=== PATIENT | male | born 1970 | race Caucasian/White ===

== ENCOUNTER → 2017-07-26 06:13 | Outpatient (CLI) | payer BC, SELFPAY ==
[2017-07-26 08:44] LABS: ALB/GLOB Ratio 1.2 RATIO (0.9-2.4); AST(SGOT) 19 U/L (15-37); Alanine Aminotransfer ALT/SGPT 16 U/L (16-61); Albumin, Serum 3.9 g/dL (3.2-5.0); Alkaline Phosphatase 95 U/L (45-117); Anion Gap 6 (5-15); BUN 12 mg/dL (7-18); BUN/Creat Ratio 13.2 RATIO (10-20); Calcium,Total 8.2 mg/dL (8.5-10.1); Chloride 103 mmol/L (98-107); Cholesterol 146 mg/dL (200); Creatinine, Serum 0.91 mg/dL (0.70-1.30); EST Glomerular Filtration Rate 96 mL/min (>60); Est Glom Filt Rate - Afr Amer 116 mL/min (>60); Globulin 3.3 g/dL (2.2-4.2); Glucose 87 mg/dL (74-106); High Density Lipoprotein 52 mg/dL; Potassium 3.8 mmol/L (3.5-5.1); Protein, Total 7.2 g/dL (6.4-8.2); Sodium Level 136 mmol/L (136-145); T4 Free Direct 0.94 ng/dL (0.76-1.46); Thyroid Stim Hormone (TSH) 3.35 uIU/mL (0.358-3.74); Triglycerides 60 mg/dL; Very Low Density Lipoprotein 12 mg/dL (5-40)
== END ==
PROVIDERS: Family Provider Family Medicine; PCP Family Medicine; Visit Provider Family Medicine
DX: Z00.00 Encounter for general adult medical examination without abnormal findings (principal)
CPT/HCPCS: 36415; 80053; 80061; 84439; 84443

== ENCOUNTER → 2018-08-01 05:58 | Outpatient (CLI) | payer BC, SELFPAY ==
[2018-08-01 08:15] LABS: ALB/GLOB Ratio 1.3 RATIO (0.9-2.4); AST(SGOT) 18 U/L (15-37); Alanine Aminotransfer ALT/SGPT 17 U/L (16-61); Alkaline Phosphatase 72 U/L (45-117); Anion Gap 5 (5-15); BUN 11 mg/dL (7-18); BUN/Creat Ratio 11.5 RATIO (10-20); Calcium,Total 8.2 mg/dL (8.5-10.1); Chloride 106 mmol/L (98-107); Cholesterol 146 mg/dL (200); Creatinine, Serum 0.95 mg/dL (0.70-1.30); EST Glomerular Filtration Rate 90 mL/min (>60); Est Glom Filt Rate - Afr Amer 109 mL/min (>60); Glucose 95 mg/dL (74-106); High Density Lipoprotein 53 mg/dL; Potassium 3.7 mmol/L (3.5-5.1); Sodium Level 137 mmol/L (136-145); Thyroid Stim Hormone (TSH) 2.76 uIU/mL (0.358-3.74); Triglycerides 60 mg/dL; Very Low Density Lipoprotein 12 mg/dL (5-40)
== END ==
PROVIDERS: Family Provider Family Medicine; PCP Family Medicine; Referring Provider Family Medicine; Visit Provider Family Medicine
DX: Z00.00 Encounter for general adult medical examination without abnormal findings (principal)
CPT/HCPCS: 36415; 80053; 80061; 84443

== ENCOUNTER → 2019-11-18 | Outpatient (CLI) | payer BC, SELFPAY ==
[2019-11-18 08:57] LABS: ALB/GLOB Ratio 1.2 RATIO (0.9-2.4); AST(SGOT) 19 U/L (15-37); Alanine Aminotransfer ALT/SGPT 18 U/L (16-61); Albumin, Serum 4.3 g/dL (3.2-5.0); Alkaline Phosphatase 76 U/L (45-117); Anion Gap 5 (5-15); BUN 10 mg/dL (7-18); BUN/Creat Ratio 10.6 RATIO (10-20); Calcium,Total 8.9 mg/dL (8.5-10.1); Chloride 103 mmol/L (98-107); Cholesterol 191 mg/dL (200); Creatinine, Serum 0.94 mg/dL (0.70-1.30); EST Glomerular Filtration Rate 91 mL/min (>60); Est Glom Filt Rate - Afr Amer 110 mL/min (>60); Globulin 3.6 g/dL (2.2-4.2); Glucose 94 mg/dL (74-106); High Density Lipoprotein 67 mg/dL; Potassium 3.8 mmol/L (3.5-5.1); Protein, Total 7.9 g/dL (6.4-8.2); Sodium Level 134 mmol/L (136-145); Thyroid Stim Hormone (TSH) 3.12 uIU/mL (0.358-3.74); Triglycerides 65 mg/dL; Very Low Density Lipoprotein 13 mg/dL (5-40)
== END | disposition home or self-care (01) ==
LOC: LAB 05:58
PROVIDERS: PCP Family Medicine; Referring Provider Family Medicine; Visit Provider Family Medicine
DX: Z00.00 Encounter for general adult medical examination without abnormal findings (principal)
CPT/HCPCS: 36415; 80053; 80061; 84443

== ENCOUNTER → 2020-11-04 05:47 | Outpatient (CLI) | payer BC, SELFPAY ==
[2020-11-04 07:46] LABS: ALB/GLOB Ratio 1.2 RATIO (0.9-2.4); AST(SGOT) 19 U/L (15-37); Alanine Aminotransfer ALT/SGPT 13 U/L (16-61); Albumin, Serum 4.1 g/dL (3.2-5.0); Alkaline Phosphatase 69 U/L (45-117); Anion Gap 9 (5-15); BUN 9 mg/dL (7-18); BUN/Creat Ratio 8.8 RATIO (10-20); Calcium,Total 8.8 mg/dL (8.5-10.1); Chloride 102 mmol/L (98-107); Cholesterol 175 mg/dL (200); Creatinine, Serum 1.02 mg/dL (0.70-1.30); EST Glomerular Filtration Rate 82 mL/min (>60); Est Glom Filt Rate - Afr Amer 100 mL/min (>60); Globulin 3.3 g/dL (2.2-4.2); Glucose 86 mg/dL (74-106); High Density Lipoprotein 69 mg/dL; Protein, Total 7.4 g/dL (6.4-8.2); Sodium Level 137 mmol/L (136-145); Thyroid Stim Hormone (TSH) 2.97 uIU/mL (0.358-3.74); Triglycerides 55 mg/dL; Very Low Density Lipoprotein 11 mg/dL (5-40)
== END ==
PROVIDERS: PCP Family Medicine; Referring Provider Family Medicine; Visit Provider Family Medicine
DX: Z00.00 Encounter for general adult medical examination without abnormal findings (principal)
CPT/HCPCS: 36415; 80053; 80061; 84443

== ENCOUNTER → 2022-03-23 | Outpatient (CLI) | payer BC, SELFPAY ==
[2022-03-23 07:33] LABS: Absolute Lymphocyte Count 1.56 X10^3/uL (0.83-4.51); Absolute Neutrophil Count 3.2 X10^3/uL (2.0-7.7); Basophil# 0.02 X10^3/uL; Basophil% 0.4 % (0-1); Eosinophil# 0.08 X10^3/uL; Eosinophils% 1.4 % (0-5); Hematocrit 43.1 % (40-54); Hemoglobin 16.1 g/dL (13.0-16.5); Lymphocyte # 1.56 X10^3/ul (0.83-4.51); Lymphocyte % 27.9 % (19-41); Mean Corp Hgb Conc 37.4 g/dL (32-36); Mean Corpuscular Hgb 35.3 pg (27.0-32.0); Mean Corpuscular Volume 94.5 fL (80-94); Mean Platelet Vol. 9.4 fl (6.2-12.0); Monocyte# 0.69 X10^3/uL; Monocyte% 12.3 % (0-10); NRBC Flagged by Analyzer 0 % (0-5); Neutrophil # 3.22 X10^3/uL (2.7-7.7); Neutrophil % 57.6 % (47-70); Platelet Count 247 K/mm3 (150-450); RBC Distribution Width CV 11.6 % (11.6-14.6); Red Blood Count 4.56 M/mm3 (4.6-6.2); White Blood Count 5.6 K/mm3 (4.4-11.0)
[2022-03-23 08:29] LABS: ALB/GLOB Ratio 1.1 RATIO (0.9-2.4); AST(SGOT) 12 U/L (15-37); Alanine Aminotransfer ALT/SGPT 17 U/L (16-61); Albumin, Serum 4.1 g/dL (3.2-5.0); Alkaline Phosphatase 77 U/L (45-117); Anion Gap 8 (5-15); BUN 13 mg/dL (7-18); BUN/Creat Ratio 13.2 RATIO (10-20); Calcium,Total 8.8 mg/dL (8.5-10.1); Chloride 104 mmol/L (98-107); Cholesterol 184 mg/dL (200); Creatinine, Serum 0.98 mg/dL (0.70-1.30); EST Glomerular Filtration Rate 85 mL/min (>60); Est Glom Filt Rate - Afr Amer 103 mL/min (>60); Globulin 3.8 g/dL (2.2-4.2); Glucose 103 mg/dL (74-106); High Density Lipoprotein 66 mg/dL; PSA,Total - Annual Screen 1.18 ng/mL (0.00-4.00); Potassium 4.1 mmol/L (3.5-5.1); Protein, Total 7.9 g/dL (6.4-8.2); Sodium Level 137 mmol/L (136-145); Triglycerides 73 mg/dL; Very Low Density Lipoprotein 15 mg/dL (5-40)
== END | disposition home or self-care (01) ==
LOC: LAB 05:44
PROVIDERS: PCP Family Medicine; Referring Provider Family Medicine; Visit Provider Family Medicine
DX: Z00.00 Encounter for general adult medical examination without abnormal findings (principal); Z12.5 Encounter for screening for malignant neoplasm of prostate
CPT/HCPCS: 36415; 80053; 80061; 84153; 84443; 85025; G0103

== ENCOUNTER → 2022-06-27 | Outpatient (CLI) | payer BC, SELFPAY ==
[2022-06-27 16:44] LABS: T4 Free Direct 1.19 ng/dL (0.76-1.46); Thyroid Stim Hormone (TSH) 2.63 uIU/mL (0.358-3.74)
== END | disposition home or self-care (01) ==
LOC: LAB 15:23
PROVIDERS: PCP Family Medicine; Visit Provider Family Medicine
DX: R94.6 Abnormal results of thyroid function studies (principal)
CPT/HCPCS: 36415; 84439; 84443

== ENCOUNTER → 2023-03-22 | Outpatient (CLI) | payer BC, SELFPAY ==
--- NOTE | 2023-03-22 09:58 | RAD_ITS ---
INDICATION: ACUTE LOW BACK PAIN EXAMINATION/TECHNIQUE: X-RAY - XR Spine Lumbar 2 or 3 Views COMPARISON: None. FINDINGS: VERTEBRAE: Mild anterior wedge deformity of T12 and L1. L4 limbus vertebral body with sclerotic changes adjacent to the superior and anterior endplate. No definite acute fracture. 5 mm retrolisthesis L3 on L4. Preservation of the normal lumbar lordosis. No significant facet arthropathy. DISCS: Mild disc space narrowing at L3-4, L4-5 and L5-S1. INCLUDED ABDOMEN: Included bowel gas pattern is non-obstructive. RAD/Lumbar Spine 2 or 3 Views IMPRESSION: Physiologic wedging versus posttraumatic wedge deformity of T12 and L1, findings of unknown chronicity. L4 vertebral body with sclerotic changes anteriorly, likely chronic posttraumatic change. Mild degenerative disc changes from L3-4 distally. Electronically Signed: Kg Arevalo MD at 15:30 EDT ,
--- NOTE | 2023-03-22 10:10 | RAD_ITS ---
INDICATION: R HIP PAIN EXAMINATION/TECHNIQUE: X-RAY - XR Hip Unilateral with Pelvis when performed; 2-3 Views COMPARISON: No relevant prior comparison study available FINDINGS: PELVIC BONES: No displaced fracture, destructive or sclerotic lesions. Note that overlapping bowel shadows may however obscure fine detail. Sacroiliac joints are unremarkable. No widening of the pubic symphysis. HIPS: Hip joint spaces well-maintained bilaterally. No acute hip fracture. SOFT TISSUES: No soft tissue swelling or gas. RAD/HIP, UNI W/ Pelvis 2-3 Views IMPRESSION: No acute bony injury or significant arthropathy. Electronically Signed: Kg Arevalo MD at 15:31 EDT ,
== END | disposition home or self-care (01) ==
LOC: RAD 09:57
PROVIDERS: PCP Family Medicine; Referring Provider Family Medicine; Visit Provider Family Medicine
DX: M25.551 Pain in right hip (principal); M54.50 Low back pain, unspecified
CPT/HCPCS: 72100; 73502

== ENCOUNTER → 2023-04-05 | Outpatient (CLI) | payer BC, SELFPAY ==
[2023-04-05 07:51] LABS: Absolute Lymphocyte Count 2.07 X10^3/uL (0.83-4.51); Absolute Neutrophil Count 2.6 X10^3/uL (2.0-7.7); Basophil# 0.07 X10^3/uL; Basophil% 1.2 % (0-1); Eosinophil# 0.13 X10^3/uL; Eosinophils% 2.2 % (0-5); Hematocrit 44.3 % (40-54); Lymphocyte # 2.07 X10^3/ul (0.83-4.51); Lymphocyte % 35.3 % (19-41); Mean Corp Hgb Conc 33.9 g/dL (32-36); Mean Corpuscular Hgb 33.1 pg (27.0-32.0); Mean Corpuscular Volume 97.8 fL (80-94); Mean Platelet Vol. 9.1 fl (6.2-12.0); Monocyte# 0.99 X10^3/uL; Monocyte% 16.9 % (0-10); NRBC Flagged by Analyzer 0 % (0-5); Neutrophil # 2.58 X10^3/uL (2.7-7.7); Neutrophil % 44.1 % (47-70); POSITIVE MORPHOLOGY YES; Platelet Count 330 K/mm3 (150-450); RBC Distribution Width CV 11.6 % (11.6-14.6); RBC Distribution Width SD 41.7 fl (35.1-43.9); Red Blood Count 4.53 M/mm3 (4.6-6.2); White Blood Count 5.9 K/mm3 (4.4-11.0)
[2023-04-05 07:59] LABS: Differential Indicated SCAN CRITERIA MET
[2023-04-05 08:01] LABS: Atypical Lymphocyte RARE %
[2023-04-05 08:30] LABS: ALB/GLOB Ratio 1.1 RATIO (0.9-2.4); AST(SGOT) 22 U/L (15-37); Alanine Aminotransfer ALT/SGPT 18 U/L (16-61); Alkaline Phosphatase 78 U/L (45-117); Anion Gap 6 (5-15); BUN 14 mg/dL (7-18); BUN/Creat Ratio 13.5 RATIO (10-20); Calcium,Total 8.3 mg/dL (8.5-10.1); Chloride 106 mmol/L (98-107); Cholesterol 177 mg/dL (200); Creatinine, Serum 1.04 mg/dL (0.70-1.30); EST Glomerular Filtration Rate 80 mL/min (>60); Est Glom Filt Rate - Afr Amer 97 mL/min (>60); Globulin 3.5 g/dL (2.2-4.2); Glucose 94 mg/dL (74-106); High Density Lipoprotein 60 mg/dL; PSA,Total - Annual Screen 1.39 ng/mL (0.00-4.00); Potassium 3.8 mmol/L (3.5-5.1); Protein, Total 7.5 g/dL (6.4-8.2); Sodium Level 138 mmol/L (136-145); Triglycerides 45 mg/dL; Very Low Density Lipoprotein 9 mg/dL (5-40)
[2023-04-08 08:21] LABS: T4 Free Direct 1.18 ng/dL (0.76-1.46); Thyroid Stim Hormone (TSH) 3.22 uIU/mL (0.358-3.74)
== END | disposition home or self-care (01) ==
LOC: LAB 05:56
PROVIDERS: PCP Nurse Practitioner Family; Referring Provider Nurse Practitioner Family; Visit Provider Nurse Practitioner Family
DX: Z00.01 Encounter for general adult medical examination with abnormal findings (principal); R79.89 Other specified abnormal findings of blood chemistry
CPT/HCPCS: 36415; 80053; 80061; 84153; 84439; 84443; 85025; G0103

== ENCOUNTER 2023-08-06 17:55 | Emergency (ER) | payer BC, SELFPAY ==
[2023-08-06] VITALS (7 sets, daily range): BP systolic 131–150; BP diastolic 79–94; PULSE 71–99; RESP 16–19; TEMP 36.4–36.8; O2SAT 96–100; BMI 25.0
--- NOTE | 2023-08-06 18:12 | EDS_ITS ---
HPI History of Present Illness Chief Complaint: Sore Throat Informant: patient Narrative Narrative: Patient presents secondary to throat tightness. He states he was driving about 2 hours ago when he felt like his heart started racing and his throat got tight. He looked in the mirror and his face was flushed. He denies itching or hives. He states the throat tightness is to about the same for the past 2 hours. He is currently on buspirone and fluoxetine. There have been some recent dosage changes to his medications but no new medications introduced. [facility] Medical History (Updated 08/06/23 @ 22:[address] Helen Santos MD) Anxiety and depression Allergy/AdvReac Type Severity Reaction Status Date / Time No Known Allergies Allergy Verified 08/06/23 18:42 Social History Smoking Status: Unknown if ever smoked ROS ROS ED Constitutional Constitutional ED: Denies chills or fever(s) Eyes Eyes: Denies discharge from eye(s) ENT ENT ED: Reports other Details: Throat tightness ; Denies discharge from eye(s) or rhinorrhea Cardiovascular Cardiovascular: Denies chest pain or palpitations Respiratory/Chest Respiratory/Chest: Denies cough or dyspnea Gastrointestinal Gastrointestinal: Denies abdominal pain, nausea or vomiting Musculoskeletal Musculoskeletal: Denies back pain or extremity pain Integumentary Denies Abrasions or rash Neurologic Neurologic: Denies headache(s) or weakness Psychiatric Psychiatric: Denies anxiety or depression Allergic/Immunologic Allergic/Immunologic ED: Denies lip swelling or urticaria EXAM Physical Exam Narrative Exam Narrative: Patient speaks with a strong voice and is tolerating secretions well. Const Vital Signs: 08/06/23 17:56 08/06/23 19:00 08/06/23 18:30 Temperature 98.2 F 98.3 F Temperature Source Temporal Oral Pulse Rate 95 79 82 Respiratory Rate 17 16 19 H Blood Pressure 150/84 H 147/89 H 147/89 H Blood Pressure Mean 106 108 108 Pulse Ox 97 98 98 Oxygen Delivery Method Room Air Room Air Room Air 08/06/23 18:42 08/06/23 21:05 08/06/23 20:00 Temperature Temperature Source Pulse Rate 99 71 82 Respiratory Rate 18 16 16 Blood Pressure 131/79 H 147/89 H Blood Pressure Mean 96 108 Pulse Ox 96 97 97 Oxygen Delivery Method Room Air Room Air Positive well nourished and well developed General Appearance ED: well developed HEENT Reports moist mucous membranes Eyes EOMs intact bilaterally Chest Wall inspection of chest normal and palpation of chest normal Resp normal respiratory effort and clear to auscultation bilaterally Cardio regular rate and regular rhythm GI non-tender Palpation: soft Extremity normal to inspection Neuro oriented x3 and no sensory deficits noted Motor Exam: strength 5/5 throughout Psych mental status grossly normal Skin no rashes or lesions noted MDM MDM MDM Narrative Medical decision making narrative: Patient placed on playground monitor. IV line initiated. Patient given Benadryl, Pepcid, and Solu-Medrol. Labwork obtained to evaluate for leukocytosis, anemia, and electrolyte derangement. CT scan of the neck will be obtained to evaluate for edema or airway narrowing. History & Record Review Discussion w/independent historian: Patient Lab Data Attestation: I reviewed the patient's lab results. Labs: Laboratory Results - last 24 hr 08/06/23 18:30 WBC 5.3 RBC 4.16 L Hgb 14.2 Hct 39.1 L MCV 94.0 MCH 34.1 H MCHC 36.3 H RDW Std Deviation 39.0 RDW Coeff of Nicole 11.3 L Plt Count 256 MPV 8.8 Immature Gran % (Auto) 0.200 Neut % (Auto) 63.4 Lymph % (Auto) 19.9 [place] % (Auto) 15.0 H Eos % (Auto) 0.9 Baso % (Auto) 0.6 Absolute Neuts (auto) 3.4 Absolute Lymphs (auto) 1.06 Nucleated RBC % 0 Sodium 131 L Potassium 3.8 Chloride 98 Carbon Dioxide 25.0 Anion Gap 8 BUN 9 Creatinine 1.12 Estim Creat Clear Calc 85.64 Est GFR (MDRD) Af Amer 89 Est GFR (MDRD) Non-Af 73 BUN/Creatinine Ratio 8.0 L Glucose 115 H Calcium 8.7 Radiography Diagnostic Testing: Clinical Impression(s) from Imaging Studies Soft Tissue Neck CT 08/06/23 18:15 IMPRESSION: No dominant mass. Mildly enlarged lymph nodes. Right middle ear and mastoid opacification. Electronically Signed: Binh Simon MD at 19:56 EDT , Treatment and Re-Evaluation :: CBC was a white count of 5.3 with a hemoglobin of 14.2. Differential unremarkable. Chemistry studies normal with a glucose of 115. CT scan of the soft tissue neck with IV contrast reveals no dominant mass. Mildly enlarged lymph nodes noted. Right middle ear and mastoid opacification is appreciated. On repeat examination I examined his right ear. He does have cerium and blocking the tympanic membrane. I will order Debrox and ear irrigation. Patient states he does feel that his throat is improved and he has no difficulty swallowing or breathing at this time. On repeat evaluation patient does have decreased cerumen noted to the right ear. He will use drops at home for the next couple days. He will speak with his primary care provider tomorrow regarding the medications he is currently on as he has not taken anything different when he had this reaction tonight. Discharge Plan Triage Chief Complaint: Sore Throat ED Provider: Helen Santos Dx/Rx/DC Orders Clinical Impression: Allergic reaction Instructions: ED General Allergic Reactions Primary Care Provider: Sarah Ambrocio Referrals: Sarah Ambrocio, SUPERVISOR [employer] [Primary Care Provider] - As soon as possible Disposition Disposition: Home, Self Care
--- NOTE | 2023-08-06 18:15 | CT_ITS ---
STUDY: CT SOFT TISSUE NECK WITH CONTRAST REASON FOR EXAM: Male, 52 years old. Throat swelling RADIATION DOSAGE (If Supplied By Facility): CTDIvol = ( 16.12 ) mGy, DLP = ( 483.20 ) mGycm TECHNIQUE: The patient was scanned in a multi-detector CT scanner. High resolution transaxial imaging was performed following intravenous administration of IV 75mL Isovue-370. Sagittal and coronal images were reconstructed. Individualized dose optimization techniques were used for this CT. COMPARISON: None. FINDINGS: Normal bilateral parotid glands. Normal bilateral bank appraiser spaces. Normal bilateral parapharyngeal spaces. Normal bilateral carotid spaces. Normal bilateral sublingual and submandibular glands and spaces. Normal visualized nasopharynx. Normal retropharyngeal space. Normal perivertebral space. Normal visualized bilateral faucial tonsils. The visualized tongue, tongue base and oropharynx are normal. There are mildly enlarged submandibular lymph nodes measure up to 1.5 cm. There is no demonstrated solid or cystic mass lesion. There is no abnormal contrast enhancement. Normal epiglottis, bilateral vallecula and hypopharynx. The pre-epiglottic and paraglottic adipose spaces are normal. Normal visualized bilateral piriform sinuses, aryepiglottic folds, vocal cords, and arytenoid-cricoid articulations. Normal subglottic trachea. Normal bilateral lobes of the thyroid gland. Normal visualized pulmonary apices. Normal visualized paranasal sinuses. There is degenerative change of the cervical spine. There is moderate mid and ear and mastoid opacification. CT/Soft Tissue Neck WITH Contrast IMPRESSION: No dominant mass. Mildly enlarged lymph nodes. Right middle ear and mastoid opacification. Electronically Signed: Binh Simon MD at 19:56 EDT ,
[2023-08-06] MEDS: Famotidine 200 MG/20 ML MDV 20 MG in 0.9% Normal Saline (Pres. free 8 ML 300 MG IV (18:42)
[2023-08-06] MEDS: MethylPREDNISolone 125 MG/2 ML Vial IV (18:42)
[2023-08-06] MEDS: 0.9% Normal Saline (1000mL) 1,000 ML 150 ML IV (18:43)
[2023-08-06] MEDS: DiphenhydrAMINE 50 MG/ML Syringe 25 MG IV (18:43)
[2023-08-06 18:47] LABS: Absolute Lymphocyte Count 1.06 X10^3/uL (0.83-4.51); Absolute Neutrophil Count 3.4 X10^3/uL (2.0-7.7); Basophil# 0.03 X10^3/uL; Basophil% 0.6 % (0-1); Eosinophil# 0.05 X10^3/uL; Eosinophils% 0.9 % (0-5); Hematocrit 39.1 % (40-54); Hemoglobin 14.2 g/dL (13.0-16.5); Lymphocyte # 1.06 X10^3/ul (0.83-4.51); Lymphocyte % 19.9 % (19-41); Mean Corp Hgb Conc 36.3 g/dL (32-36); Mean Corpuscular Hgb 34.1 pg (27.0-32.0); Mean Platelet Vol. 8.8 fl (6.2-12.0); NRBC Flagged by Analyzer 0 % (0-5); Neutrophil # 3.39 X10^3/uL (2.7-7.7); Neutrophil % 63.4 % (47-70); Platelet Count 256 K/mm3 (150-450); RBC Distribution Width CV 11.3 % (11.6-14.6); Red Blood Count 4.16 M/mm3 (4.6-6.2); White Blood Count 5.3 K/mm3 (4.4-11.0)
[2023-08-06 19:00] LABS: Anion Gap 8 (5-15); BUN 9 mg/dL (7-18); Calcium,Total 8.7 mg/dL (8.5-10.1); Chloride 98 mmol/L (98-107); Creatinine, Serum 1.12 mg/dL (0.70-1.30); EST Glomerular Filtration Rate 73 mL/min (>60); Est Glom Filt Rate - Afr Amer 89 mL/min (>60); Estimated Creatinine Clearance 85.64 ml/min; Glucose 115 mg/dL (74-106); Potassium 3.8 mmol/L (3.5-5.1); Sodium Level 131 mmol/L (136-145)
[2023-08-06] MEDS: Carbamide Peroxide 15 ML Bottle 5 DRP OTIC (21:29)
== END 2023-08-06 22:36 | disposition home or self-care (01) ==
PROVIDERS: Emergency Provider Emergency Medicine; PCP Nurse Practitioner Family; Visit Provider Emergency Medicine
DX: T78.40XA Allergy, unspecified, initial encounter (principal); J02.9 Acute pharyngitis, unspecified; Z79.899 Other long term (current) drug therapy; F41.9 Anxiety disorder, unspecified; F32.A Depression, unspecified; X58.XXXA Exposure to other specified factors, initial encounter
CPT/HCPCS: 70491; 80048; 85025; 96361; 96374; 96375; 99285; J7030; Q9967; A4216; J3490

== ENCOUNTER → 2023-11-12 | Outpatient (CLI) | payer BC, SELFPAY ==
--- NOTE | 2023-11-12 12:14 | EKG12_ITS ---
Test Reason : PRE OP Blood Pressure : / mmHG Vent. Rate : 073 BPM Atrial Rate : 073 BPM P-R Int : 128 ms QRS Dur : 098 ms QT Int : 406 ms P-R-T Axes : 075 -29 046 degrees QTc Int : 447 ms Normal sinus rhythm Normal ECG Confirmed by Rex Joshi ([id number]), department editor DARCI ECKERT ([id number]) on 11/13/2023 11:29:04 AM Referred By: Antony Luis Confirmed By:Rex Joshi
[2023-11-12 13:22] LABS: Hematocrit 40.7 % (40-54); Hemoglobin 13.9 g/dL (13.0-16.5); Mean Corp Hgb Conc 34.2 g/dL (32-36); Mean Corpuscular Hgb 33.8 pg (27.0-32.0); Mean Platelet Vol. 8.7 fl (6.2-12.0); Platelet Count 317 K/mm3 (150-450); RBC Distribution Width CV 12.1 % (11.6-14.6); Red Blood Count 4.11 M/mm3 (4.6-6.2); White Blood Count 6.3 K/mm3 (4.4-11.0)
[2023-11-12 13:50] LABS: Anion Gap 2 (5-15); BUN 11 mg/dL (7-18); BUN/Creat Ratio 12.5 RATIO (10-20); Calcium,Total 8.9 mg/dL (8.5-10.1); Chloride 102 mmol/L (98-107); Creatinine, Serum 0.88 mg/dL (0.70-1.30); EST Glomerular Filtration Rate 97 mL/min (>60); Est Glom Filt Rate - Afr Amer 117 mL/min (>60); Glucose 100 mg/dL (74-106); Potassium 4.1 mmol/L (3.5-5.1); Sodium Level 135 mmol/L (136-145)
== END | disposition home or self-care (01) ==
PROVIDERS: PCP Nurse Practitioner Family; Referring Provider Otolaryngology; Visit Provider Otolaryngology
DX: Z01.818 Encounter for other preprocedural examination (principal)
CPT/HCPCS: 36415; 80048; 85027; 93005

== ENCOUNTER → 2024-03-06 | Outpatient (CLI) | payer BC, SELFPAY ==
[2024-03-06 06:59] LABS: Absolute Lymphocyte Count 1.32 X10^3/uL (0.83-4.51); Absolute Neutrophil Count 2.4 X10^3/uL (2.0-7.7); Basophil# 0.04 X10^3/uL; Basophil% 0.8 % (0-1); Eosinophil# 0.13 X10^3/uL; Eosinophils% 2.7 % (0-5); Hematocrit 42.4 % (40-54); Hemoglobin 14.8 g/dL (13.0-16.5); Lymphocyte # 1.32 X10^3/ul (0.83-4.51); Mean Corp Hgb Conc 34.9 g/dL (32-36); Mean Corpuscular Volume 97.5 fL (80-94); Mean Platelet Vol. 9.2 fl (6.2-12.0); Monocyte# 0.96 X10^3/uL; Monocyte% 19.7 % (0-10); NRBC Flagged by Analyzer 0 % (0-5); Neutrophil # 2.41 X10^3/uL (2.7-7.7); Neutrophil % 49.4 % (47-70); Platelet Count 290 K/mm3 (150-450); RBC Distribution Width CV 11.9 % (11.6-14.6); RBC Distribution Width SD 43.4 fl (35.1-43.9); Red Blood Count 4.35 M/mm3 (4.6-6.2); White Blood Count 4.9 K/mm3 (4.4-11.0)
[2024-03-06 07:37] LABS: ALB/GLOB Ratio 1.2 RATIO (0.9-2.4); AST(SGOT) 23 U/L (15-37); Alanine Aminotransfer ALT/SGPT 15 U/L (16-61); Albumin, Serum 3.9 g/dL (3.2-5.0); Alkaline Phosphatase 78 U/L (45-117); Anion Gap 5 (5-15); BUN 16 mg/dL (7-18); BUN/Creat Ratio 16.3 RATIO (10-20); Calcium,Total 8.4 mg/dL (8.5-10.1); Chloride 105 mmol/L (98-107); Cholesterol 168 mg/dL (200); Creatinine, Serum 0.98 mg/dL (0.70-1.30); EST Glomerular Filtration Rate 85 mL/min (>60); Est Glom Filt Rate - Afr Amer 103 mL/min (>60); Globulin 3.3 g/dL (2.2-4.2); Glucose 103 mg/dL (74-106); High Density Lipoprotein 82 mg/dL; Potassium 4.2 mmol/L (3.5-5.1); Protein, Total 7.2 g/dL (6.4-8.2); Sodium Level 134 mmol/L (136-145); T4 Free Direct 0.92 ng/dL (0.76-1.46); Triglycerides 30 mg/dL; Very Low Density Lipoprotein 6 mg/dL (5-40)
[2024-03-06 10:26] LABS: Vitamin D,25 Hydroxy 17.2 ng/mL
== END | disposition home or self-care (01) ==
LOC: LAB 06:02
PROVIDERS: PCP Nurse Practitioner Family; Referring Provider Nurse Practitioner Family; Visit Provider Nurse Practitioner Family
DX: Z00.01 Encounter for general adult medical examination with abnormal findings (principal); Z12.5 Encounter for screening for malignant neoplasm of prostate; R79.89 Other specified abnormal findings of blood chemistry; E55.9 Vitamin D deficiency, unspecified
CPT/HCPCS: 36415; 80053; 80061; 82306; 84439; 84443; 85025

== ENCOUNTER 2024-12-17 08:30 | Emergency (ER) | payer BC, SELFPAY ==
[2024-12-17 08:31] VITALS: BP 159/82; PULSE 70; RESP 18; TEMP 36.8; O2SAT 100; BMI 25.4
--- NOTE | 2024-12-17 08:53 | EKG12_ITS ---
Test Reason : PAIN WHEN BREATHING Blood Pressure : */* mmHG Vent. Rate : 71 BPM Atrial Rate : 71 BPM P-R Int : 154 ms QRS Dur : 100 ms QT Int : 398 ms P-R-T Axes : 45 -46 19 degrees QTcB Int : 432 ms Normal sinus rhythm Left anterior fascicular block Abnormal ECG Confirmed by IVORY TOMLINSON, CYRUS ([id number]), editor & co founder NILDA RAMOS ([id number]) on 12/21/2024 8:19:06 AM Referred By: STACEY Confirmed By: CYRUS DODSON MD
--- NOTE | 2024-12-17 08:53 | RAD_ITS ---
PROCEDURE: CHEST PA AND LATERAL 12/17/2024 REASON FOR EXAM: SHORTNESS OF BREATH TECHNIQUE: Three-view PA and lateral chest. COMPARISON: None. RAD/Chest PA and Lateral IMPRESSION: At least mild left acromioclavicular joint degenerative changes are seen. Mild thoracic spine degenerative changes are seen, along with early DISH. No acute osseous changes noted. Lungs appear clear. No pleural effusion or pneumothorax is noted. The cardiomediastinal silhouette is within the normal range for age. No evidence of acute cardiopulmonary disease. Reading Location: [place] [id number]
--- NOTE | 2024-12-17 08:57 | ED.VIS.CHEST ---
HPI History of Present Illness Chief Complaint: Chest Other Narrative Narrative: Chief complaint and HPI: Pain with respiratory inspiration. 54-year-old male with past medical history of anxiety, depression, insomnia presents for evaluation of pain with respiratory inspiration. Onset of symptoms approximately 1 hour. Patient states at rest he has no pain however anytime he takes a deep breath then he develops a sharp stabbing pain in his chest. He states it develops about intermediate through the breath. He denies any fever, chills, cough, shortness of breath, true chest pain, abdominal pain, nausea, vomiting, bilateral lower extremity pain or swelling. He denies any history of DVT/PE. Denies any history of recent travel. Non-smoker. Denies any injury. Review of systems: See HPI Medications: As listed on the chart Allergies: As listed on the chart PFSH: Per chart Vital signs: As listed on the chart. Reviewed. Physical exam: Gen: A&O x3, NAD Head: Normocephalic, atraumatic Eyes: No sclera icterus, conjunctiva clear ENT: Moist mucous membranes Neck: Trachea midline, No JVD CV: RRR, no murmurs, no peripheral edema Resp: Lungs CTA BL, no w/r/c GI: Abd soft, non-distended, non-tender, no r/r/g Musc: Full ROM, no deformity Skin: Warm, dry Neuro: Alert, oriented, grossly intact, sensation intact Psych: Cooperative, appropriate mood and affect [facility] Medical History (Updated 12/17/24 @ 10:[address] Lauri Lazo DO) Anxiety and depression Home Medications ?Medication ?Instructions ?Recorded ?Last Taken ?Type buspirone 15 mg tablet 15 mg PO BID 12/17/24 Unknown History fluoxetine 20 mg capsule 20 mg PO DAILY 12/17/24 Unknown History meloxicam 15 mg tablet 15 mg PO DAILY 12/17/24 Unknown History tadalafil 20 mg tablet 20 mg PO PRN 12/17/24 Unknown History zolpidem 10 mg tablet 10 mg PO QHS PRN PRN sleep 12/17/24 Unknown History Allergy/AdvReac Type Severity Reaction Status Date / Time No Known Allergies Allergy Verified 12/17/24 08:32 Social History Smoking Status: Never smoker EXAM Physical Exam Const Vital Signs: 12/17/24 08:31 12/17/24 08:48 12/17/24 10:31 Temperature 98.3 F Temperature Source Oral Pulse Rate 70 60 Respiratory Rate 18 15 Respiratory Effort Normal Non-Labored Blood Pressure 159/82 H 135/90 H Blood Pressure Mean 107 105 Pulse Ox 100 99 Oxygen Delivery Method Room Air Room Air MDM MDM MDM Narrative Medical decision making narrative: 54-year-old male with past medical history of anxiety, depression, insomnia presents for evaluation of pain with respiratory inspiration. Onset of symptoms approximately 1 hour. Patient states at rest he has no pain however anytime he takes a deep breath then he develops a sharp stabbing pain in his chest. He states it develops about intermediate through the breath. He denies shortness of breath or true chest pain. Differential diagnosis includes but is not limited to pleurisy, costochondritis, myofascial spasm, pneumothorax, PE, suspect less likely CHF. HPI is not consistent with ACS. IM Toradol ordered for pain. Respiratory workup ordered. CBC without leukocytosis or anemia. Platelets unremarkable. D-dimer unremarkable. BMP unremarkable. BNP unremarkable. At this point in time, no etiology to explain patient's pain with inspiration although I expect it is pleurisy. On reevaluation after receiving Toradol, patient states his pain has resolved. He is able to take a deep breath. Patient was updated of all his results and the plan for discharge home. Follow-up with primary care physician. He confirmed understanding of the plan. Return precautions explained. EKG: Interpreted by me/EM physician: EKG shows normal sinus rhythm with heart rate 71. No acute ischemic changes. Diagnostic: Interpreted by me/EM physician: Chest x-ray without pneumonia, effusion, cardiomegaly, pneumothorax. Radiology in agreement. Impression: 1. Pain with deep inspiration, suspect pleurisy 2. HTN, to be confirmed Lab Data Labs: Laboratory Results - last 24 hr 12/17/24 08:42 WBC 4.7 RBC 4.24 L Hgb 14.4 Hct 40.9 MCV 96.5 H MCH 34.0 H MCHC 35.2 RDW Std Deviation 42.6 RDW Coeff of Nicole 12.0 Plt Count 269 MPV 8.9 Immature Gran % (Auto) 0.400 Neut % (Auto) 55.0 Lymph % (Auto) 23.8 [place] % (Auto) 17.0 H Eos % (Auto) 3.2 Baso % (Auto) 0.6 Absolute Neuts (auto) 2.6 Absolute Lymphs (auto) 1.12 Nucleated RBC % 0 D-Dimer Quant (PE/DVT) 0.38 Sodium 134 Potassium 4.2 Chloride 99 Carbon Dioxide 21.6 Anion Gap 14 BUN 14 Creatinine 0.97 Estim Creat Clear Calc 93.80 Est GFR (MDRD) Non-Af 93 BUN/Creatinine Ratio 14.7 Glucose 104 H Calcium 8.9 NT pro BNP II < 36 Radiography Diagnostic Testing: Clinical Impression(s) from Imaging Studies Chest X-Ray 12/17/24 08:53 IMPRESSION: At least mild left acromioclavicular joint degenerative changes are seen. Mild thoracic spine degenerative changes are seen, along with early DISH. No acute osseous changes noted. Lungs appear clear. No pleural effusion or pneumothorax is noted. The cardiomediastinal silhouette is within the normal range for age. No evidence of acute cardiopulmonary disease. Reading Location: [place] [address] Discharge Plan Triage Chief Complaint: Chest Other ED Provider: Lauri Lazo Dx/Rx/DC Orders Clinical Impression: Pleurisy Instructions: ED Pleurisy Prescriptions: No Action fluoxetine 20 mg capsule 20 mg PO DAILY buspirone 15 mg tablet 15 mg PO BID meloxicam 15 mg tablet 15 mg PO DAILY tadalafil 20 mg tablet 20 mg PO PRN zolpidem 10 mg tablet 10 mg PO QHS PRN PRN (Reason: sleep) Primary Care Provider: Sarah Ambrocio Referrals: Sarah Ambrocio, INSURANCE CLAIMS PROCESSOR-C [Primary Care Provider] - 3-5 Days Activity Restrictions/Additional Instructions: He received Toradol here in the emergency department, no ibuprofen for 8 hours. Return back to the ED if symptoms change or worsen. Follow-up with your primary care physician. Your blood pressure has been elevated here in the emergency department. Follow-up with your primary care physician for possible hypertension. Print Language: Panamanian Disposition Disposition: Home, Self Care
[2024-12-17 09:05] LABS: Hematocrit 40.9 % (40-54); Hemoglobin 14.4 g/dL (13.0-16.5); Immature Granulocytes Count 0.020 X10^3/uL (0.0-0.0); Mean Corp Hgb Conc 35.2 g/dL (32-36); Mean Corpuscular Volume 96.5 fL (80-94); Mean Platelet Vol. 8.9 fl (6.2-12.0); NRBC Flagged by Analyzer 0 % (0-5); Platelet Count 269 K/mm3 (150-450); RBC Distribution Width CV 12.0 % (11.6-14.6); RBC Distribution Width SD 42.6 fl (35.1-43.9); Red Blood Count 4.24 M/mm3 (4.6-6.2); White Blood Count 4.7 K/mm3 (4.4-11.0)
[2024-12-17 09:16] LABS: D-Dimer Quantitative (DVT/PE) 0.38 FEU/ug/m (0.27-0.49)
[2024-12-17 09:44] LABS: Anion Gap 14 (5-15); BUN 14 mg/dL (4-19); BUN/Creat Ratio 14.7 RATIO (10-20); Calcium,Total 8.9 mg/dL (7.6-11.0); Carbon Dioxide 21.6 mmol/L (21.0-32.0); Chloride 99 mmol/L (98-108); Estimated Creatinine Clearance 93.80 ml/min (50-250); Glucose 104 mg/dL (70-99); Potassium 4.2 mmol/L (3.3-5.1); Pro- Brain NATRIURETIC PEPTIDE < 36 pg/mL (<=900)
[2024-12-17 10:31] VITALS: BP 135/90; PULSE 60; RESP 15; O2SAT 99
[2024-12-17 11:02] VITALS: BP 137/83; PULSE 68; RESP 16; TEMP 36.7; O2SAT 100
--- OUTSIDE RECORDS SUMMARY | 2024-12-17 11:04 | XMS RPT_ITS | CCD ---
Author Organization [facility] Care Team Providers Care Door Opener Name Role Phone Cristóbal, Sarah Primary Care Unavailable Antony Luis Attending Unavailable Toby, Antony Referring Unavailable Cristóbal, Sarah Primary Care Unavailable Rex Joshi Attending Unavailable Toby, Antony Referring Unavailable Cristóbal, Sarah Primary Care Unavailable Cristóbal, Sarah Attending Unavailable Cristóbal, Sarah Referring Unavailable Cristóbal, Sarah Primary Care Unavailable Cristóbal, Sarah Attending Unavailable Cristóbal, Sarah Referring Unavailable Helen Santos Attending Unavailable Cristóbal, Sarah Primary Care Unavailable Cristóbal, Sarah Attending Unavailable Cristóbal, Sarah Primary Care Unavailable Problems Active Problems Problem Classification Problem Date Documented Da te Episodic/Chronic Allergic reactions (1 source) Allergic reaction; Translations: [Allergy, unspecified, initial encounter] 08-06-2023 Episodic Other screening for suspected conditions (not mental disorders or infectious disease) (1 source) Encounter for screening for malignant neoplasm of prostate; Translations: [Encounter for screening for malignant neoplasm of prostate] Onset: 03-06-2024 Episodic Past or Other Problems Problem Classification Problem Date Documented Da te Episodic/Chronic Other upper respiratory infections (1 source) Acute pharyngitis, unspecified; Translations: [Acute pharyngitis, unspecified] Onset: 08-12-2023 Episodic Results Test Name Value Interpretation Reference Range Facility CBC W/Diff, Automatedon 02-17 Absolute Lymph 1.32 X10 3/uL Normal 0.83-4.51 [facility] Comment on above: Performed By: #### L 100.0100, L501.9520, L506.0400, L500.4100, L500.4050, L501.9910 #### [facility] [address] [place], [address] Absolute Neut 2.4 X10 3/uL Normal 2.0-7.7 [facility] Comment on above: Performed By: #### L 100.0100, L501.9520, L506.0400, L500.4100, L500.4050, L501.9910 #### [facility] [address] [place], [address] Basophils/100 WBC (Bld) 0.8 % Normal 0-1 [facility] Comment on above: Performed By: #### L 100.0100, L501.9520, L506.0400, L500.4100, L500.4050, L501.9910 #### [facility] [address] [place], [address] Eosinophils/100 WBC (Bld) 2.7 % Normal 0-5 [facility] Comment on above: Performed By: #### L 100.0100, L501.9520, L506.0400, L500.4100, L500.4050, L501.9910 #### [facility] [address] [place], [address] Erythrocyte distribution width (RBC) [Ratio] 11.9 % Normal 11.6-14.6 [facility] Comment on above: Performed By: #### L 100.0100, L501.9520, L506.0400, L500.4100, L500.4050, L501.9910 #### [facility] [address] [place], [address] Hematocrit (Bld) [Volume fraction] 42.4 % Normal 40-54 [facility] Comment on above: Performed By: #### L 100.0100, L501.9520, L506.0400, L500.4100, L500.4050, L501.9910 #### [facility] [address] [place], [address] Hemoglobin (Bld) [Mass/Vol] 14.8 g/dL Normal 13.0-16.5 [facility] Comment on above: Performed By: #### L 100.0100, L501.9520, L506.0400, L500.4100, L500.4050, L501.9910 #### [facility] [address] [place], [address] IG% 0.400 Normal 0.0-0.9 [facility] Comment on above: Result Comment: IG% - Immature Granulocytes (promyelocytes, myelocytes and metamyelocytes) > 1% indicates that a LEFT SHIFT is Present. Performed By: #### L 100.0100, L501.9520, L506.0400, L500.4100, L500.4050, L501.9910 #### [facility] [address] [facility] [place], [address] Lymphocytes/100 WBC (Bld) 27.0 % Normal 19-41 [facility] Comment on above: Performed By: #### L 100.0100, L501.9520, L506.0400, L500.4100, L500.4050, L501.9910 #### [facility] [address] [place], [address] MCH (RBC) [Entitic mass] 34.0 pg High 27.0-32.0 [facility] Comment on above: Performed By: #### L 100.0100, L501.9520, L506.0400, L500.4100, L500.4050, L501.9910 #### [facility] [address] [place], [address] MCHC (RBC) [Mass/Vol] 34.9 g/dL Normal 32-36 [facility] Comment on above: Performed By: #### L 100.0100, L501.9520, L506.0400, L500.4100, L500.4050, L501.9910 #### [facility] [address] [place], [address] MCV (RBC) [Entitic vol] 97.5 fL High 80-94 [facility] Comment on above: Performed By: #### L 100.0100, L501.9520, L506.0400, L500.4100, L500.4050, L501.9910 #### [facility] [address] [place], [address] Monocytes/100 WBC (Bld) 19.7 % High 0-10 [facility] Comment on above: Performed By: #### L 100.0100, L501.9520, L506.0400, L500.4100, L500.4050, L501.9910 #### [facility] [address] [place], [address] Neutrophils/100 WBC (Bld) 49.4 % Normal 47-70 [facility] Comment on above: Performed By: #### L 100.0100, L501.9520, L506.0400, L500.4100, L500.4050, L501.9910 #### [facility] [address] [place], [address] Nucleated RBC (Bld) [#/Vol] 0 10*3/uL Normal 0-5 [facility] Comment on above: Performed By: #### L 100.0100, L501.9520, L506.0400, L500.4100, L500.4050, L501.9910 #### [facility] [address] [place], [address] Platelet mean volume (Bld) [Entitic vol] 9.2 fL Normal 6.2-12.0 [facility] Comment on above: Performed By: #### L 100.0100, L501.9520, L506.0400, L500.4100, L500.4050, L501.9910 #### [facility] [address] [place], [address] Platelets (Bld) [#/Vol] 290 10*3/uL Normal 150-450 [facility] Comment on above: Performed By: #### L 100.0100, L501.9520, L506.0400, L500.4100, L500.4050, L501.9910 #### [facility] [address] [place], [address] RBC (Bld) [#/Vol] 4.35 10*6/uL Low 4.6-6.2 [facility] Comment on above: Performed By: #### L 100.0100, L501.9520, L506.0400, L500.4100, L500.4050, L501.9910 #### [facility] [address] [place], [address] RDW SD 43.4 fl Normal 35.1-43.9 [facility] Comment on above: Performed By: #### L 100.0100, L501.9520, L506.0400, L500.4100, L500.4050, L501.9910 #### [facility] [address] [place], [address] WBC (Bld) [#/Vol] 4.9 10*3/uL Normal 4.4-11.0 [facility] Comment on above: Performed By: #### L 100.0100, L501.9520, L506.0400, L500.4100, L500.4050, L501.9910 #### [facility] [address] [place], [address] Comprehensive Metabolic Prof mnon 03-06-2024 Albumin [Mass/Vol] 3.9 g/dL Normal 3.2-5.0 [facility] Comment on above: Order Comment: CBCD Performed By: #### L 100.0100, L501.9520, L506.0400, L500.4100, L500.4050, L501.9910 #### [facility] [address] [place], [address] Albumin/Globulin [Mass ratio] 1.2 {ratio} Normal 0.9-2.4 [facility] Comment on above: Order Comment: CBCD Performed By: #### L 100.0100, L501.9520, L506.0400, L500.4100, L500.4050, L501.9910 #### [facility] [address] [place], [address] ALK P 78 U/L Normal 45-117 [facility] Comment on above: Order Comment: CBCD Performed By: #### L 100.0100, L501.9520, L506.0400, L500.4100, L500.4050, L501.9910 #### [facility] [address] [place], [address] ALT [Catalytic activity/Vol] 15 U/L Low 16-61 [facility] Comment on above: Order Comment: CBCD Performed By: #### L 100.0100, L501.9520, L506.0400, L500.4100, L500.4050, L501.9910 #### [facility] [address] [place], [address] AST [Catalytic activity/Vol] 23 U/L Normal 15-37 [facility] Comment on above: Order Comment: CBCD Performed By: #### L 100.0100, L501.9520, L506.0400, L500.4100, L500.4050, L501.9910 #### [facility] [address] [place], [address] Bilirubin [Mass/Vol] 0.50 mg/dL Normal 0.20-1.00 [facility] Comment on above: Order Comment: CBCD Result Comment: For patients on eltrombopag therapy, use of Dimension [place] TBIL is not recommended. Performed By: #### L 100.0100, L501.9520, L506.0400, L500.4100, L500.4050, L501.9910 #### [facility] [address] [place], [address] BUN/CRE 16.3 RATIO Normal 10-20 [facility] Comment on above: Order Comment: CBCD Performed By: #### L 100.0100, L501.9520, L506.0400, L500.4100, L500.4050, L501.9910 #### [facility] [address] [place], [address] CA,Total 8.4 mg/dL Low 8.5-10.1 [facility] Comment on above: Order Comment: CBCD Performed By: #### L 100.0100, L501.9520, L506.0400, L500.4100, L500.4050, L501.9910 #### [facility] [address] [place], [address] Chloride [Moles/Vol] 105 mmol/L Normal 98-107 [facility] Comment on above: Order Comment: CBCD Performed By: #### L 100.0100, L501.9520, L506.0400, L500.4100, L500.4050, L501.9910 #### [facility] [address] [place], [address] CO2 [Moles/Vol] 24.0 mmol/L Normal 21.0-32.0 [facility] Comment on above: Order Comment: CBCD Performed By: #### L 100.0100, L501.9520, L506.0400, L500.4100, L500.4050, L501.9910 #### [facility] [address] [place], [address] Creatinine [Mass/Vol] 0.98 mg/dL Normal 0.70-1.30 [facility] Comment on above: Order Comment: CBCD Result Comment: The validity of the calculated GFR GFRAA in patients over 70 years has not been determined. Clinical correlation is essential. Performed By: #### L 100.0100, L501.9520, L506.0400, L500.4100, L500.4050, L501.9910 #### [facility] [address] [place], [place], [id number] (722) EST GFR - AA 103 mL/min Normal >60 [facility] Comment on above: Order Comment: CBCD Result Comment: Afri can Israeli GFR Calc Performed By: #### L 100.0100, L501.9520, L506.0400, L500.4100, L500.4050, L501.9910 #### [facility] [address] [place], [place], [id number] (653) GAP 5 Normal 5-15 [facility] Comment on above: Order Comment: CBCD Performed By: #### L 100.0100, L501.9520, L506.0400, L500.4100, L500.4050, L501.9910 #### [facility] [address] [place], [place], [id number] (834) GFR/1.73 sq M.predicted among non-blacks MDRD (S/P/Bld) [Vol rate/Area] 85 mL/min/{1.73_m2} Normal >60 [facility] Comment on above: Order Comment: CBCD Result Comment: Non- GFR Calc Performed By: #### L 100.0100, L501.9520, L506.0400, L500.4100, L500.4050, L501.9910 #### [facility] [address] [place], [address] Globulin (S) [Mass/Vol] 3.3 g/dL Normal 2.2-4.2 [facility] Comment on above: Order Comment: CBCD Performed By: #### L 100.0100, L501.9520, L506.0400, L500.4100, L500.4050, L501.9910 #### [facility] [address] [place], [address] Glucose [Mass/Vol] 103 mg/dL Normal 74-106 [facility] Comment on above: Order Comment: CBCD Result Comment: Fast ing Glucose result from 100 to 125 mg/dL suggests IMPAIRED HOMEOSTASIS per A.D.A. criteria. Performed By: #### L 100.0100, L501.9520, L506.0400, L500.4100, L500.4050, L501.9910 #### [facility] [address] [place], [address] Potassium [Moles/Vol] 4.2 mmol/L Normal 3.5-5.1 [facility] Comment on above: Order Comment: CBCD Performed By: #### L 100.0100, L501.9520, L506.0400, L500.4100, L500.4050, L501.9910 #### [facility] [address] [place], [address] Sodium [Moles/Vol] 134 mmol/L Low 136-145 [facility] Comment on above: Order Comment: CBCD Performed By: #### L 100.0100, L501.9520, L506.0400, L500.4100, L500.4050, L501.9910 #### [facility] [address] [place], [address] T PROT 7.2 g/dL Normal 6.4-8.2 [facility] Comment on above: Order Comment: CBCD Performed By: #### L 100.0100, L501.9520, L506.0400, L500.4100, L500.4050, L501.9910 #### [facility] [address] [place], [address] Urea nitrogen [Mass/Vol] 16 mg/dL Normal - [facility] Comment on above: Order Comment: CBCD Performed By: #### L 100.0100, L501.9520, L506.0400, L500.4100, L500.4050, L501.9910 #### [facility] [address] [place], [address] Lipid Profileon 03-06-2024 Cholesterol [Mass/Vol] 168 mg/dL Normal 200 [facility] Comment on above: Order Comment: CBCD Result Comment: <200 mg/dL Desirable 200-240 mg/dL Borderline >240 mg/dL High Risk Performed By: #### L 100.0100, L501.9520, L506.0400, L500.4100, L500.4050, L501.9910 #### [facility] [address] [place], [address] Cholesterol in HDL [Mass/Vol] 82 mg/dL Normal [facility] Comment on above: Order Comment: CBCD Result Comment: The drugs N-Acetylcysteine and Metamizole may falsely depress this assay. Reference Range HDL <40 mg/dL Low HDL Cholesterol HDL >or= 60 mg/dL High HDL Cholesterol Performed By: #### L 100.0100, L501.9520, L506.0400, L500.4100, L500.4050, L501.9910 #### [facility] [address] [place], [address] Cholesterol in LDL [Mass/Vol] 80 mg/dL Normal 0-130 [facility] Comment on above: Order Comment: CBCD Performed By: #### L 100.0100, L501.9520, L506.0400, L500.4100, L500.4050, L501.9910 #### [facility] [address] [place], [address] Cholesterol in VLDL [Mass/Vol] 6 mg/dL Normal 5-40 [facility] Comment on above: Order Comment: CBCD Performed By: #### L 100.0100, L501.9520, L506.0400, L500.4100, L500.4050, L501.9910 #### [facility] [address] [place], [address] Triglyceride [Mass/Vol] 30 mg/dL Normal [facility] Comment on above: Order Comment: CBCD Result Comment: The drugs N-Acetylcysteine and Metamizole may falsely depress this assay. Serum Triglycerides Reference Interval Normal <150 mg/dL Borderline high 150 - 199 mg/dL High 200 - 499 mg/dL Very High > or = 500 mg/dL Performed By: #### L 100.0100, L501.9520, L506.0400, L500.4100, L500.4050, L501.9910 #### [facility] [address] [place], [address] T4 Free Directon 03-06-2024 T4 FREE DIRECT 0.92 ng/dL Normal 0.76-1.46 [facility] Comment on above: Order Comment: CBCD Performed By: #### L 100.0100, L501.9520, L506.0400, L500.4100, L500.4050, L501.9910 #### [facility] [address] [place], [address] Thyroid Stim Hormone (TSH)on 03-06-2024 TSH 3.080 uIU/mL Normal 0.358-3.740 [facility] Comment on above: Order Comment: CBCD Performed By: #### L 100.0100, L501.9520, L506.0400, L500.4100, L500.4050, L501.9910 #### [facility] [address] [place], [address] Vitamin D,25 Hydroxyon 03-06 Vitamin D 25-OH 17.2 ng/mL Normal [facility] Comment on above: Result Comment: Violeta min D 25(OH) Status Range Deficiency <20 ng/mL (50nmol/L) Insufficiency 20 - 30 ng/mL (50 - 75 nmol/L) Sufficiency 30 - 100 ng/mL (75 - 250 nmol/L) Toxicity >100 ng/mL (>250 nmol/L) Performed By: #### L 100.0100, L501.9520, L506.0400, L500.4100, L500.4050, L501.9910 #### [facility] [address] [place], [address] 12 Lead EKGon 11-12-2023 12 Lead EKG [facility] [address] [place] [address] 12 Lead EKG 11/12/23 1226 MR#: [id number] Acct: [id number] Name: WILMAR TURCIOS Rep #: [id number] : 1970 53 From: Rex Joshi MD Attending Dr: Dr. Antony Luis MD Status: REG CLI Ordering Dr: Antony Luis MD Date: 11/12/23 Location: [facility] Sex: M C Admitted: Test Reason : PRE OP Blood Pressure : / mmHG Vent. Rate : 073 BPM Atrial Rate : 073 BPM P-R Int : 128 ms QRS Dur : 098 ms QT Int : 406 ms P-R-T Axes : 075 -29 046 degrees QTc Int : 447 ms Normal sinus rhythm Normal ECG Confirmed by Rex Joshi ([id number]), news assignment editor DARCI ECKERT ([id number]) on 11/13/2023 11:29:04 AM Referred By: Antony Luis Confirmed By:Rex Joshi 11/13/23 1129 Date Rex Joshi MD CC: UPHOLSTERER APPRENTICE-C Sarah Ambrocio; Dr. Antony Luis MD Signed Normal [facility] Basic Metabolic Profile (BMP )on 11-12-2023 BUN/CRE 12.5 RATIO Normal 10-20 [facility] Comment on above: Performed By: #### L 100.0100, L501.9520, L506.0400, L500.4100, L500.4050, L501.9910 #### [facility] [address] [place], [address] CA,Total 8.9 mg/dL Normal 8.5-10.1 [facility] Comment on above: Performed By: #### L 100.0100, L501.9520, L506.0400, L500.4100, L500.4050, L501.9910 #### [facility] [address] [place], [address] Chloride [Moles/Vol] 102 mmol/L Normal 98-107 [facility] Comment on above: Performed By: #### L 100.0100, L501.9520, L506.0400, L500.4100, L500.4050, L501.9910 #### [facility] [address] [place], [address] CO2 [Moles/Vol] 31.0 mmol/L Normal 21.0-32.0 [facility] Comment on above: Performed By: #### L 100.0100, L501.9520, L506.0400, L500.4100, L500.4050, L501.9910 #### [facility] [address] [place], [address] Creatinine [Mass/Vol] 0.88 mg/dL Normal 0.70-1.30 [facility] Comment on above: Result Comment: The validity of the calculated GFR GFRAA in patients over 70 years has not been determined. Clinical correlation is essential. Performed By: #### L 100.0100, L501.9520, L506.0400, L500.4100, L500.4050, L501.9910 #### [facility] [address] [place], [address] EST GFR - AA 117 mL/min Normal >60 [facility] Comment on above: Result Comment: Afri can Israeli GFR Calc Performed By: #### L 100.0100, L501.9520, L506.0400, L500.4100, L500.4050, L501.9910 #### [facility] [address] [place], [address] GAP 2 Low 5-15 [facility] Comment on above: Performed By: #### L 100.0100, L501.9520, L506.0400, L500.4100, L500.4050, L501.9910 #### [facility] [address] [place], [address] GFR/1.73 sq M.predicted among non-blacks MDRD (S/P/Bld) [Vol rate/Area] 97 mL/min/{1.73_m2} Normal >60 [facility] Comment on above: Result Comment: Non- GFR Calc Performed By: #### L 100.0100, L501.9520, L506.0400, L500.4100, L500.4050, L501.9910 #### [facility] [address] [place], [address] Glucose [Mass/Vol] 100 mg/dL Normal 74-106 [facility] Comment on above: Result Comment: Fast ing Glucose result from 100 to 125 mg/dL suggests IMPAIRED HOMEOSTASIS per A.D.A. criteria. Performed By: #### L 100.0100, L501.9520, L506.0400, L500.4100, L500.4050, L501.9910 #### [facility] [address] [place], [address] Potassium [Moles/Vol] 4.1 mmol/L Normal 3.5-5.1 [facility] Comment on above: Performed By: #### L 100.0100, L501.9520, L506.0400, L500.4100, L500.4050, L501.9910 #### [facility] [address] [place], [address] Sodium [Moles/Vol] 135 mmol/L Low 136-145 [facility] Comment on above: Performed By: #### L 100.0100, L501.9520, L506.0400, L500.4100, L500.4050, L501.9910 #### [facility] [address] [place], [address] Urea nitrogen [Mass/Vol] 11 mg/dL Normal 7-18 [facility] Comment on above: Performed By: #### L 100.0100, L501.9520, L506.0400, L500.4100, L500.4050, L501.9910 #### [facility] [address] [place], [address] CBC-Complete Blood Cnt No Di ffon 11-12-2023 Erythrocyte distribution width (RBC) [Ratio] 12.1 % Normal 11.6-14.6 [facility] Comment on above: Performed By: #### L 500.2500, L100.0500 #### [facility] [address] [place], [address] Hematocrit (Bld) [Volume fraction] 40.7 % Normal 40-54 [facility] Comment on above: Performed By: #### L 500.2500, L100.0500 #### [facility] [address] [place], [address] Hemoglobin (Bld) [Mass/Vol] 13.9 g/dL Normal 13.0-16.5 [facility] Comment on above: Performed By: #### L 500.2500, L100.0500 #### [facility] [address] [place], [address] MCH (RBC) [Entitic mass] 33.8 pg High 27.0-32.0 [facility] Comment on above: Performed By: #### L 500.2500, L100.0500 #### [facility] [address] [place], [address] MCHC (RBC) [Mass/Vol] 34.2 g/dL Normal 32-36 [facility] Comment on above: Performed By: #### L 500.2500, L100.0500 #### [facility] [address] [place], [address] MCV (RBC) [Entitic vol] 99.0 fL High 80-94 [facility] Comment on above: Performed By: #### L 500.2500, L100.0500 #### [facility] [address] [place], [address] Platelet mean volume (Bld) [Entitic vol] 8.7 fL Normal 6.2-12.0 [facility] Comment on above: Performed By: #### L 500.2500, L100.0500 #### [facility] [address] [place], [address] Platelets (Bld) [#/Vol] 317 10*3/uL Normal 150-450 [facility] Comment on above: Performed By: #### L 500.2500, L100.0500 #### [facility] [address] [place], [address] RBC (Bld) [#/Vol] 4.11 10*6/uL Low 4.6-6.2 [facility] Comment on above: Performed By: #### L 500.2500, L100.0500 #### [facility] [address] [place], [address] RDW SD 44.0 fl High 35.1-43.9 [facility] Comment on above: Performed By: #### L 500.2500, L100.0500 #### [facility] [address] [place], [address] WBC (Bld) [#/Vol] 6.3 10*3/uL Normal 4.4-11.0 [facility] Comment on above: Performed By: #### L 500.2500, L100.0500 #### [facility] [address] [place], [address] Absolute lymphocyte countOrd ered By: Helen Santos on 08-06-2023 Lymphocytes Auto (Unsp spec) [#/Vol] 1.06 10*3/uL 0.83-4.51 [facility] Automated lymphocyte count a s percentage of total leukocytesOrdered By: Helen Santos on 08-06-2023 Lymphocytes/100 WBC Auto (Unsp spec) 19.9 % 19-41 [facility] Basic Metabolic Profile (BMP )on 08-06-2023 BUN/CRE 8.0 RATIO Low 10-20 [facility] Comment on above: Performed By: #### L 100.0100, L501.9520, L506.0400, L500.4100, L500.4050, L501.9910 #### [facility] [address] [place], [address] CA,Total 8.7 mg/dL Normal 8.5-10.1 [facility] Comment on above: Performed By: #### L 100.0100, L501.9520, L506.0400, L500.4100, L500.4050, L501.9910 #### [facility] [address] [place], [address] ECRCL 85.64 ml/min Normal [facility] Comment on above: Performed By: #### L 100.0100, L501.9520, L506.0400, L500.4100, L500.4050, L501.9910 #### [facility] [address] [place], [place], [id number] EST GFR - AA 89 mL/min Normal >60 [facility] Comment on above: Result Comment: Afri can Israeli GFR Calc Performed By: #### L 100.0100, L501.9520, L506.0400, L500.4100, L500.4050, L501.9910 #### [facility] [address] [place], [place], [address] GAP 8 Normal 5-15 [facility] Comment on above: Performed By: #### L 100.0100, L501.9520, L506.0400, L500.4100, L500.4050, L501.9910 #### [facility] [address] [place], [place], [id number] ([address]) GFR/1.73 sq M.predicted among non-blacks MDRD (S/P/Bld) [Vol rate/Area] 73 mL/min/{1.73_m2} Normal >60 [facility] Comment on above: Result Comment: Non- GFR Calc Performed By: #### L 100.0100, L501.9520, L506.0400, L500.4100, L500.4050, L501.9910 #### [facility] [address] [place], [place], [id number] Basic Metabolic Profile (BMP )Ordered By: Helen Santos on 08-06-2023 CO2 [Moles/Vol] 25.0 mmol/L Normal 21.0-32.0 [facility] Comment on above: Performed By: #### L 100.0100, L501.9520, L506.0400, L500.4100, L500.4050, L501.9910 #### [facility] [address] [place], [place], [id number] Basophil percentageOrdered B y: Helen Santos on 08-06-2023 Basophils/100 WBC (Bld) 0.6 % 0-1 [facility] Chloride [Moles/Vol] 98 mmol/L Normal 98-107 [facility] Comment on above: Performed By: #### L 100.0100, L501.9520, L506.0400, L500.4100, L500.4050, L501.9910 #### [facility] [address] [place], [address] Eosinophils/100 WBC (Bld) 0.9 % 0-5 [facility] Glucose [Mass/Vol] 115 mg/dL High 74-106 [facility] Comment on above: Fasting Glucose resu lt from 100 to 125 mg/dL suggests IMPAIRED HOMEOSTASIS per A.D.A. criteria. Result Comment: Fast ing Glucose result from 100 to 125 mg/dL suggests IMPAIRED HOMEOSTASIS per A.D.A. criteria. Performed By: #### L 100.0100, L501.9520, L506.0400, L500.4100, L500.4050, L501.9910 #### [facility] [address] [place], [address] Hemoglobin (Bld) [Mass/Vol] 14.2 g/dL 13.0-16.5 [facility] Monocytes/100 WBC (Bld) 15.0 % 0-10 [facility] Neutrophils (Bld) [#/Vol] 3.4 10*3/uL 2.0-7.7 [facility] Neutrophils/100 WBC (Bld) 63.4 % 47-70 [facility] Potassium [Moles/Vol] 3.8 mmol/L Normal 3.5-5.1 [facility] Comment on above: Performed By: #### L 100.0100, L501.9520, L506.0400, L500.4100, L500.4050, L501.9910 #### [facility] [address] [place], [address] Sodium [Moles/Vol] 131 mmol/L Low 136-145 [facility] Comment on above: Performed By: #### L 100.0100, L501.9520, L506.0400, L500.4100, L500.4050, L501.9910 #### [facility] [address] [place], [address] WBC (Bld) [#/Vol] 5.3 10*3/uL 4.4-11.0 [facility] CBC W/Diff, Automatedon 07-18 Absolute Lymph 1.06 X10 3/uL Normal 0.83-4.51 [facility] Comment on above: Performed By: #### L 100.0100, L501.9520, L506.0400, L500.4100, L500.4050, L501.9910 #### [facility] [address] [place], [address] Absolute Neut 3.4 X10 3/uL Normal 2.0-7.7 [facility] Comment on above: Performed By: #### L 100.0100, L501.9520, L506.0400, L500.4100, L500.4050, L501.9910 #### [facility] [address] [place], [address] Basophils/100 WBC (Bld) 0.6 % Normal 0-1 [facility] Comment on above: Performed By: #### L 100.0100, L501.9520, L506.0400, L500.4100, L500.4050, L501.9910 #### [facility] [address] [place], [address] Eosinophils/100 WBC (Bld) 0.9 % Normal 0-5 [facility] Comment on above: Performed By: #### L 100.0100, L501.9520, L506.0400, L500.4100, L500.4050, L501.9910 #### [facility] [address] [place], [address] Erythrocyte distribution width (RBC) [Ratio] 11.3 % Low 11.6-14.6 [facility] Comment on above: Performed By: #### L 100.0100, L501.9520, L506.0400, L500.4100, L500.4050, L501.9910 #### [facility] [address] [place], [address] Hematocrit (Bld) [Volume fraction] 39.1 % Low 40-54 [facility] Comment on above: Performed By: #### L 100.0100, L501.9520, L506.0400, L500.4100, L500.4050, L501.9910 #### [facility] [address] [place], [address] Hemoglobin (Bld) [Mass/Vol] 14.2 g/dL Normal 13.0-16.5 [facility] Comment on above: Performed By: #### L 100.0100, L501.9520, L506.0400, L500.4100, L500.4050, L501.9910 #### [facility] [address] [place], [address] IG% 0.200 Normal 0.0-0.9 [facility] Comment on above: Result Comment: IG% - Immature Granulocytes (promyelocytes, myelocytes and metamyelocytes) > 1% indicates that a LEFT SHIFT is Present. Performed By: #### L 100.0100, L501.9520, L506.0400, L500.4100, L500.4050, L501.9910 #### [facility] [address] [place], [address] Lymphocytes/100 WBC (Bld) 19.9 % Normal 19-41 [facility] Comment on above: Performed By: #### L 100.0100, L501.9520, L506.0400, L500.4100, L500.4050, L501.9910 #### [facility] [address] [place], [address] MCH (RBC) [Entitic mass] 34.1 pg High 27.0-32.0 [facility] Comment on above: Performed By: #### L 100.0100, L501.9520, L506.0400, L500.4100, L500.4050, L501.9910 #### [facility] [address] [place], [address] MCHC (RBC) [Mass/Vol] 36.3 g/dL High 32-36 [facility] Comment on above: Performed By: #### L 100.0100, L501.9520, L506.0400, L500.4100, L500.4050, L501.9910 #### [facility] [address] [place], [address] MCV (RBC) [Entitic vol] 94.0 fL Normal 80-94 [facility] Comment on above: Performed By: #### L 100.0100, L501.9520, L506.0400, L500.4100, L500.4050, L501.9910 #### [facility] [address] [place], [address] Monocytes/100 WBC (Bld) 15.0 % High 0-10 [facility] Comment on above: Performed By: #### L 100.0100, L501.9520, L506.0400, L500.4100, L500.4050, L501.9910 #### [facility] [address] [place], [address] Neutrophils/100 WBC (Bld) 63.4 % Normal 47-70 [facility] Comment on above: Performed By: #### L 100.0100, L501.9520, L506.0400, L500.4100, L500.4050, L501.9910 #### [facility] [address] [place], [address] Nucleated RBC (Bld) [#/Vol] 0 10*3/uL Normal 0-5 [facility] Comment on above: Performed By: #### L 100.0100, L501.9520, L506.0400, L500.4100, L500.4050, L501.9910 #### [facility] [address] [place], [address] Platelet mean volume (Bld) [Entitic vol] 8.8 fL Normal 6.2-12.0 [facility] Comment on above: Performed By: #### L 100.0100, L501.9520, L506.0400, L500.4100, L500.4050, L501.9910 #### [facility] [address] [facility] [place], [address] Platelets (Bld) [#/Vol] 256 10*3/uL Normal 150-450 [facility] Comment on above: Performed By: #### L 100.0100, L501.9520, L506.0400, L500.4100, L500.4050, L501.9910 #### [facility] [address] [place], [address] RBC (Bld) [#/Vol] 4.16 10*6/uL Low 4.6-6.2 [facility] Comment on above: Performed By: #### L 100.0100, L501.9520, L506.0400, L500.4100, L500.4050, L501.9910 #### [facility] [address] [place], [address] RDW SD 39.0 fl Normal 35.1-43.9 [facility] Comment on above: Performed By: #### L 100.0100, L501.9520, L506.0400, L500.4100, L500.4050, L501.9910 #### [facility] [address] [place], [address] WBC (Bld) [#/Vol] 5.3 10*3/uL Normal 4.4-11.0 [facility] Comment on above: Performed By: #### L 100.0100, L501.9520, L506.0400, L500.4100, L500.4050, L501.9910 #### [facility] [address] [place], [address] Determination of erythrocyte mean corpuscular volume (MCV)Ordered By: Helen Santos on 08-06-2023 MCV (RBC) [Entitic vol] 94.0 fL 80-94 [facility] Emergency Department Summary on 08-06-2023 Emergency Department Summary [facility] Medical Records Department [address] [place] [address] Emergency Department Summary 08/06/23 MR#: [id number] Acct: [id number] Name: WILMAR TURCIOS Rep #: [id number] : 1970 52 From: Helen Santos MD PCP: REGINALD Valadez Status:DEP ER Location: ED HPI History of Present Illness Chief Complaint: Sore Throat Informant: patient Narrative Narrative: Patient presents secondary to throat tightness. He states he was driving about 2 hours ago when he felt like his heart started racing and his throat got tight. He looked in the mirror and his face was flushed. He denies itching or hives. He states the throat tightness is to about the same for the past 2 hours. He is currently on buspirone and fluoxetine. There have been some recent dosage changes to his medications but no new medications introduced. [facility] Medical History (Updated 08/06/23 @ 22:[address] Helen Santos MD) Anxiety and depression Allergy/AdvReac Type Severity Reaction Status Date / Time No Known Allergies Allergy Verified 08/06/23 18:42 Social History Smoking Status: Unknown if ever smoked ROS ROS ED Constitutional Constitutional ED: Denies chills or fever(s) Eyes Eyes: Denies discharge from eye(s) ENT ENT ED: Reports other Details: Throat tightness ; Denies discharge from eye(s) or rhinorrhea Cardiovascular Cardiovascular: Denies chest pain or palpitations Respiratory/Chest Respiratory/Chest: Denies cough or dyspnea Gastrointestinal Gastrointestinal: Denies abdominal pain, nausea or vomiting Musculoskeletal Musculoskeletal: Denies back pain or extremity pain Integumentary Denies Abrasions or rash Neurologic Neurologic: Denies headache(s) or weakness Psychiatric Psychiatric: Denies anxiety or depression Allergic/Immunologic Allergic/Immunologic ED: Denies lip swelling or urticaria EXAM Physical Exam Narrative Exam Narrative: Patient speaks with a strong voice and is tolerating secretions well. Const Vital Signs: 08/06/23 17:56 08/06/23 19:00 08/06/23 18:30 Temperature 98.2 F 98.3 F Temperature Source Temporal Oral Pulse Rate 95 79 82 Respiratory Rate 17 16 19 H Blood Pressure 150/84 H 147/89 H 147/89 H Blood Pressure Mean 106 108 108 Pulse Ox 97 98 98 Oxygen Delivery Method Room Air Room Air Room Air 08/06/23 18:42 08/06/23 21:05 08/06/23 20:00 Temperature Temperature Source Pulse Rate 99 71 82 Respiratory Rate 18 16 16 Blood Pressure 131/79 H 147/89 H Blood Pressure Mean 96 108 Pulse Ox 96 97 97 Oxygen Delivery Method Room Air Room Air Positive well nourished and well developed General Appearance ED: well developed HEENT Reports moist mucous membranes Eyes EOMs intact bilaterally Chest Wall inspection of chest normal and palpation of chest normal Resp normal respiratory effort and clear to auscultation bilaterally Cardio regular rate and regular rhythm GI non-tender Palpation: soft Extremity normal to inspection Neuro oriented x3 and no sensory deficits noted Motor Exam: strength 5/5 throughout Psych mental status grossly normal Skin no rashes or lesions noted MDM MDM MDM Narrative Medical decision making narrative: Patient placed on manager cardiac. IV line initiated. Patient given Benadryl, Pepcid, and Solu- Medrol. Labwork obtained to evaluate for leukocytosis, anemia, and electrolyte derangement. CT scan of the neck will be obtained to evaluate for edema or airway narrowing. History Record Review Discussion w/independent historian: Patient Lab Data Attestation: I reviewed the patient's lab results. Labs: Laboratory Results - last 24 hr 08/06/23 18:30 WBC 5.3 RBC 4.16 L Hgb 14.2 Hct 39.1 L MCV 94.0 MCH 34.1 H MCHC 36.3 H RDW Std Deviation 39.0 RDW Coeff of Nicole 11.3 L Plt Count 256 MPV 8.8 Immature Gran % (Auto) 0.200 Neut % (Auto) 63.4 Lymph % (Auto) 19.9 [place] % (Auto) 15.0 H Eos % (Auto) 0.9 Baso % (Auto) 0.6 Absolute Neuts (auto) 3.4 Absolute Lymphs (auto) 1.06 Nucleated RBC % 0 Sodium 131 L Potassium 3.8 Chloride 98 Carbon Dioxide 25.0 Anion Gap 8 BUN 9 Creatinine 1.12 Estim Creat Clear Calc 85.64 Est GFR (MDRD) Af Amer 89 Est GFR (MDRD) Non-Af 73 BUN/Creatinine Ratio 8.0 L Glucose 115 H Calcium 8.7 Radiography Diagnostic Testing: Clinical Impression(s) from Imaging Studies Soft Tissue Neck CT 08/06/23 18:15 IMPRESSION: No dominant mass. Mildly enlarged lymph nodes. Right middle ear and mastoid opacification. Electronically Signed: Binh Simon MD at 19:56 EDT Reading Location ID and State (more content not included)... Normal [facility] Erythrocyte distribution wid th ratioOrdered By: Helen Santos on 08-06-2023 Erythrocyte distribution width (RBC) [Ratio] 11.3 % 11.6-14.6 [facility] Erythrocyte distribution wid th standard deviationOrdered By: Helen Santos on 08-06-2023 Erythrocyte distribution width (RBC) [Entitic vol] 39.0 fL 35.1-43.9 [facility] Hematocrit Auto (Bld) [Volum e fraction]Ordered By: Helen Santos on 08-06-2023 Hematocrit (Bld) [Volume fraction] 39.1 % 40-54 [facility] Immature granulocytes/100 WB C Auto (Bld)Ordered By: Helen Santos on 08-06-2023 Immature granulocytes/100 WBC (Bld) 0.200 % 0.0-0.9 [facility] Comment on above: IG% - Immature Granu locytes (promyelocytes, myelocytes and metamyelocytes) > 1% indicates that a LEFT SHIFT is Present. Laboratory - Chemistry and C hemistry - challengeOrdered By: Helen Santos on 08-06-2023 Urea nitrogen/Creatinine [Mass ratio] 8.0 mg/mg 10-20 [facility] - Hematology and Cell countsOrdered By: Helen Santos on 08-06-2023 MCH (RBC) [Entitic mass] 34.1 pg 27.0-32.0 [facility] MCHC (RBC) [Mass/Vol] 36.3 g/dL 32-36 [facility] Nucleated RBC/100 WBC (Bld) [Ratio] 0 % 0-5 [facility] Platelet mean volume (Bld) [Entitic vol] 8.8 fL 6.2-12.0 [facility] Platelets (Bld) [#/Vol] 256 10*3/uL 150-450 [facility] No Panel InformationOrdered By: Helen Santos on 08-06-2023 Estimated Creatinine Clearance Calc 85.64 ml/min [facility] Estimated GFR (MDRD) Amer 89 mL/min >60 [facility] Comment on above: GFR Calc Estimated GFR (MDRD) Non-Af Amer 73 mL/min >60 [facility] Comment on above: Non- GFR Calc RBC Auto (Bld) [#/Vol]Ordere d By: Helen Santos on 08-06-2023 RBC (Bld) [#/Vol] 4.16 10*6/uL 4.6-6.2 [facility] Serum or plasma calcium sakina urement (mass/volume)Ordered By: Helen Santos on 08-06-2023 Calcium [Mass/Vol] 8.7 mg/dL 8.5-10.1 [facility] Serum or plasma creatinine m easurement (mass/volume)Ordered By: Helen Santos on 08-06-2023 Creatinine [Mass/Vol] 1.12 mg/dL Normal 0.70-1.30 [facility] Comment on above: The validity of the calculated GFR & GFRAA in patients over 70 years has not been determined. Clinical correlation is essential. Result Comment: The validity of the calculated GFR GFRAA in patients over 70 years has not been determined. Clinical correlation is essential. Performed By: #### L 100.0100, L501.9520, L506.0400, L500.4100, L500.4050, L501.9910 #### [facility] [address] [place], [address] Serum or plasma urea nitroge n measurement (mass/volume)Ordered By: Helen Santos on 08-06-2023 Urea nitrogen [Mass/Vol] 9 mg/dL Normal 7-18 [facility] Comment on above: Performed By: #### L 100.0100, L501.9520, L506.0400, L500.4100, L500.4050, L501.9910 #### [facility] [address] [facility] [place], [address] Soft Tissue Neck WITH Contra ston 08-06-2023 Soft Tissue Neck WITH Contrast [facility] Imaging Services [address] [place] [address] Soft Tissue Neck WITH Contrast MR#: [id number] Acct: [id number] Name: WILMAR TURCIOS Rep #: [id number] : 1970 M 52 From: iBnh Simon MD PCP: REGINALD Valadez Status: DEP ER Study: Soft Tissue Neck WITH Contrast Date of Exam: 0 08/06/23 Exam# [id number] Ordering Dr: Helen Santos MD [id number] STUDY: CT SOFT TISSUE NECK WITH CONTRAST REASON FOR EXAM: Male, 52 years old. Throat swelling RADIATION DOSAGE (If Supplied By Facility): CTDIvol = ( 16.12 ) mGy, DLP = ( 483.20 ) mGycm TECHNIQUE: The patient was scanned in a multi-detector CT scanner. High resolution transaxial imaging was performed following intravenous administration of IV 75mL Isovue-370. Sagittal and coronal images were reconstructed. Individualized dose optimization techniques were used for this CT. COMPARISON: None. FINDINGS: Normal bilateral parotid glands. Normal bilateral turntable engineer spaces. Normal bilateral parapharyngeal spaces. Normal bilateral carotid spaces. Normal bilateral sublingual and submandibular glands and spaces. Normal visualized nasopharynx. Normal retropharyngeal space. Normal perivertebral space. Normal visualized bilateral faucial tonsils. The visualized tongue, tongue base and oropharynx are normal. There are mildly enlarged submandibular lymph nodes measure up to 1.5 cm. There is no demonstrated solid or cystic mass lesion. There is no abnormal contrast enhancement. Normal epiglottis, bilateral vallecula and hypopharynx. The pre-epiglottic and paraglottic adipose spaces are normal. Normal visualized bilateral piriform sinuses, aryepiglottic folds, vocal cords, and arytenoid-cricoid articulations. Normal subglottic trachea. Normal bilateral lobes of the thyroid gland. Normal visualized pulmonary apices. Normal visualized paranasal sinuses. There is degenerative change of the cervical spine. There is moderate mid and ear and mastoid opacification. CT/Soft Tissue Neck WITH Contrast IMPRESSION: No dominant mass. Mildly enlarged lymph nodes. Right middle ear and mastoid opacification. Electronically Signed: Binh Simon MD at 19:56 EDT Reading Location ID and State: [facility] / [place] , Service support , CC: REGINALD Ambrocio; Dr. Helen Santos MD Director Multimedia: Signed Normal [facility] Thin prep Papanicolaou smear with manual screeningOrdered By: Helen Santos on 08-06-2023 Thin prep Papanicolaou smear with manual screening 8 -15 [facility] T4 Free Directon 04-08-2023 T4 FREE DIRECT 1.18 ng/dL Normal 0.76-1.46 [facility] Comment on above: Order Comment: ADD O N TSH,T4F PER ORDER FAXED Performed By: #### L 100.0100, L501.9520, L506.0400, L500.4100, L500.4050, L501.9910 #### [facility] [address] [place], [address] Thyroid Stim Hormone (TSH)on 04-08-2023 TSH 3.22 uIU/mL Normal 0.358-3.74 [facility] Comment on above: Order Comment: ADD O N TSH,T4F PER ORDER FAXED Performed By: #### L 100.0100, L501.9520, L506.0400, L500.4100, L500.4050, L501.9910 #### [facility] [address] [place], [address] Absolute lymphocyte countOrd ered By: Sarah Ambrocio on 04-05-2023 Lymphocytes Auto (Unsp spec) [#/Vol] 2.07 10*3/uL 0.83-4.51 [facility] Basophil percentageOrdered B y: Sarah Ambrocio on 04-05-2023 Bilirubin [Mass/Vol] 0.40 mg/dL Normal 0.20-1.00 [facility] Comment on above: For patients on eltr ombopag therapy, use of Dimension [place] TBIL is not recommended. Result Comment: For patients on eltrombopag therapy, use of Dimension [place] TBIL is not recommended. Performed By: #### L 100.0100, L501.9520, L506.0400, L500.4100, L500.4050, L501.9910 #### [facility] [address] [place], [address] Chloride [Moles/Vol] 106 mmol/L Normal 98-107 [facility] Comment on above: Performed By: #### L 100.0100, L501.9520, L506.0400, L500.4100, L500.4050, L501.9910 #### [facility] [address] [place], [address] Cholesterol [Mass/Vol] 177 mg/dL Normal 200 [facility] Comment on above: <200 mg/dL Desirable 200-240 mg/dL Borderline >240 mg/dL High Risk Result Comment: <200 mg/dL Desirable 200-240 mg/dL Borderline >240 mg/dL High Risk Performed By: #### L 100.0100, L501.9520, L506.0400, L500.4100, L500.4050, L501.9910 #### [facility] [address] [place], [address] Glucose [Mass/Vol] 94 mg/dL Normal 74-106 [facility] Comment on above: Performed By: #### L 100.0100, L501.9520, L506.0400, L500.4100, L500.4050, L501.9910 #### [facility] [address] [place], [address] Potassium [Moles/Vol] 3.8 mmol/L Normal 3.5-5.1 [facility] Comment on above: Performed By: #### L 100.0100, L501.9520, L506.0400, L500.4100, L500.4050, L501.9910 #### [facility] [address] [place], [address] Sodium [Moles/Vol] 138 mmol/L Normal 136-145 [facility] Comment on above: Performed By: #### L 100.0100, L501.9520, L506.0400, L500.4100, L500.4050, L501.9910 #### [facility] [address] [place], [address] Triglyceride [Mass/Vol] 45 mg/dL Normal [facility] Comment on above: The drugs N-Acetylcy steine and Metamizole may falsely depress this assay.Serum Triglycerides Reference Interval Normal <150 mg/dL Borderline high 150 - 199 mg/dL High 200 - 499 mg/dL Very High > or = 500 mg/dL Result Comment: The drugs N-Acetylcysteine and Metamizole may falsely depress this assay. Serum Triglycerides Reference Interval Normal <150 mg/dL Borderline high 150 - 199 mg/dL High 200 - 499 mg/dL Very High > or = 500 mg/dL Performed By: #### L 100.0100, L501.9520, L506.0400, L500.4100, L500.4050, L501.9910 #### [facility] [address] [place], [address] Basophils/100 WBC (Bld) 1.2 % 0-1 [facility] Eosinophils/100 WBC (Bld) 2.2 % 0-5 [facility] Neutrophils (Bld) [#/Vol] 2.6 10*3/uL 2.0-7.7 [facility] Neutrophils/100 WBC (Bld) 44.1 % 47-70 [facility] Protein [Mass/Vol] 7.5 g/dL 6.4-8.2 [facility] WBC (Bld) [#/Vol] 5.9 10*3/uL 4.4-11.0 [facility] Blood erythrocytes count (nu mber/volume)Ordered By: Sarah Ambrocio on 04-05-2023 RBC (Bld) [#/Vol] 4.53 10*6/uL 4.6-6.2 [facility] Blood hemoglobin measurement (mass/volume)Ordered By: Sarah Ambrocio on 04-05-2023 Hemoglobin (Bld) [Mass/Vol] 15.0 g/dL 13.0-16.5 [facility] Blood lymphocytes/100 leukoc ytesOrdered By: Sarah Ambrocio on 04-05-2023 Lymphocytes/100 WBC (Bld) 35.3 % 19-41 [facility] Blood monocytes/100 leukocyt esOrdered By: Sarah Ambrocio on 04-05-2023 Monocytes/100 WBC (Bld) 16.9 % 0-10 [facility] Blood platelet mean volumeOr dered By: Sarah Ambrocio on 04-05-2023 Platelet mean volume (Bld) [Entitic vol] 9.1 fL 6.2-12.0 [facility] CBC W/Diff, Automatedon 11- ATYPICAL LYMPH RARE Normal [facility] Comment on above: Performed By: #### L 100.0100, L501.9520, L506.0400, L500.4100, L500.4050, L501.9910 #### [facility] [address] [place], [address] Comprehensive Metabolic Prof ilon 04-05-2023 ALK P 78 U/L Normal 45-117 [facility] Comment on above: Performed By: #### L 100.0100, L501.9520, L506.0400, L500.4100, L500.4050, L501.9910 #### [facility] [address] [place], [address] AST [Catalytic activity/Vol] 22 U/L Normal 15-37 [facility] Comment on above: Performed By: #### L 100.0100, L501.9520, L506.0400, L500.4100, L500.4050, L501.9910 #### [facility] [address] [place], [address] BUN/CRE 13.5 RATIO Normal 10-20 [facility] Comment on above: Performed By: #### L 100.0100, L501.9520, L506.0400, L500.4100, L500.4050, L501.9910 #### [facility] [address] [place], [address] CA,Total 8.3 mg/dL Low 8.5-10.1 [facility] Comment on above: Performed By: #### L 100.0100, L501.9520, L506.0400, L500.4100, L500.4050, L501.9910 #### [facility] [address] [place], [address] EST GFR - AA 97 mL/min Normal >60 [facility] Comment on above: Result Comment: Afri can Israeli GFR Calc Performed By: #### L 100.0100, L501.9520, L506.0400, L500.4100, L500.4050, L501.9910 #### [facility] [address] [place], [address] GAP 6 Normal 5-15 [facility] Comment on above: Performed By: #### L 100.0100, L501.9520, L506.0400, L500.4100, L500.4050, L501.9910 #### [facility] Laboratory [address] [place], [address] GFR/1.73 sq M.predicted among non-blacks MDRD (S/P/Bld) [Vol rate/Area] 80 mL/min/{1.73_m2} Normal >60 [facility] Comment on above: Result Comment: Non- GFR Calc Performed By: #### L 100.0100, L501.9520, L506.0400, L500.4100, L500.4050, L501.9910 #### [facility] [address] [place], [address] T PROT 7.5 g/dL Normal 6.4-8.2 [facility] Comment on above: Performed By: #### L 100.0100, L501.9520, L506.0400, L500.4100, L500.4050, L501.9910 #### [facility] [address] [place], [address] Comprehensive Metabolic Prof ilOrdered By: Sarah Amborcio on 04-05-2023 ALT [Catalytic activity/Vol] 18 U/L Normal 16-61 [facility] Comment on above: Performed By: #### L 100.0100, L501.9520, L506.0400, L500.4100, L500.4050, L501.9910 #### [facility] [address] [place], [place], [address] CO2 [Moles/Vol] 26.0 mmol/L Normal 21.0-32.0 [facility] Comment on above: Performed By: #### L 100.0100, L501.9520, L506.0400, L500.4100, L500.4050, L501.9910 #### [facility] [address] [place], [address] Globulin (S) [Mass/Vol] 3.5 g/dL Normal 2.2-4.2 [facility] Comment on above: Performed By: #### L 100.0100, L501.9520, L506.0400, L500.4100, L500.4050, L501.9910 #### [facility] [address] [facility] [place], [place], [id number] Determination of erythrocyte mean corpuscular volume (MCV)Ordered By: Sarah Ambrocio on 04-05-2023 MCV (RBC) [Entitic vol] 97.8 fL 80-94 [facility] Hematocrit Auto (Bld) [Volum e fraction]Ordered By: Sarah Ambrocio on 04-05-2023 Hematocrit (Bld) [Volume fraction] 44.3 % 40-54 [facility] - Chemistry and C hemistry - challengeOrdered By: Sarahdyan Ambrocio on 04-05-2023 ALP [Catalytic activity/Vol] 78 U/L 45-117 [facility] Free T4 [Mass/Vol] 1.18 ng/dL 0.76-1.46 [facility] Urea nitrogen/Creatinine [Mass ratio] 13.5 mg/mg 10-20 [facility] - Hematology and Cell countsOrdered By: Sarah Ambrocio on 04-05-2023 Erythrocyte distribution width (RBC) [Entitic vol] 41.7 fL 35.1-43.9 [facility] Erythrocyte distribution width (RBC) [Ratio] 11.6 % 11.6-14.6 [facility] Immature granulocytes/100 WBC (Bld) 0.300 % 0.0-0.9 [facility] Comment on above: IG% - Immature Granu locytes (promyelocytes, myelocytes and metamyelocytes) > 1% indicates that a LEFT SHIFT is Present. MCH (RBC) [Entitic mass] 33.1 pg 27.0-32.0 [facility] Nucleated RBC/100 WBC (Bld) [Ratio] 0 % 0-5 [facility] MCHC Auto (RBC) [Mass/Vol]Or dered By: Sarah Ambrocio on 04-05-2023 MCHC (RBC) [Mass/Vol] 33.9 g/dL 32-36 [facility] No Panel InformationOrdered By: Sarah Ambrocio on 04-05-2023 Atypical Lymphocytes RARE % [facility] Estimated GFR (MDRD) Amer 97 mL/min >60 [facility] Comment on above: GFR Calc Estimated GFR (MDRD) Non-Af Amer 80 mL/min >60 [facility] Comment on above: Non- GFR Calc Prostate Specific Antigen Screen 1.39 ng/mL 0.00-4.00 [facility] Comment on above: This test was perfor med using the TPSA assay method for the[employer] chemistry system. Values obtained with differentassay methods cannot be used interchangably.When changing PSA assays in the course of monitoring apatient, additional sequential testing should be carriedout to confirm baseline values. Thyroid Stimulating Hormone (TSH) 3.22 uIU/mL 0.358-3.74 [facility] PSA,Total - Annual Screenon 04-05-2023 PSA,TOT SCREEN 1.39 ng/mL Normal 0.00-4.00 [facility] Comment on above: Result Comment: This test was performed using the TPSA assay method for the [employer] chemistry system. Values obtained with different assay methods cannot be used interchangably. When changing PSA assays in the course of monitoring a patient, additional sequential testing should be carried out to confirm baseline values. Performed By: #### L 100.0100, L501.9520, L506.0400, L500.4100, L500.4050, L501.9910 #### [facility] [address] [place], [place], [id number] Platelets bldOrdered By: Padmini dyan Cristóbal on 04-05-2023 Platelets (Bld) [#/Vol] 330 10*3/uL 150-450 [facility] Serum or plasma albumin sakina urement (mass/volume)Ordered By: Sarah Ambrocio on 04-05-2023 Albumin [Mass/Vol] 4.0 g/dL Normal 3.2-5.0 [facility] Comment on above: Performed By: #### L 100.0100, L501.9520, L506.0400, L500.4100, L500.4050, L501.9910 #### [facility] [address] [place], [place], [address] Serum or plasma albumin/glob ulin mass ratioOrdered By: Sarah Ambrocio on 04-05-2023 Albumin/Globulin [Mass ratio] 1.1 {ratio} Normal 0.9-2.4 [facility] Comment on above: Performed By: #### L 100.0100, L501.9520, L506.0400, L500.4100, L500.4050, L501.9910 #### [facility] [address] [place], [place], [address] Serum or plasma calcium sakina urement (mass/volume)Ordered By: Sarah Ambrocio on 04-05-2023 Calcium [Mass/Vol] 8.3 mg/dL 8.5-10.1 [facility] Serum or plasma cholesterol in HDL measurement (mass/volume)Ordered By: Sarah Ambrocio on 04-05-2023 Cholesterol in HDL [Mass/Vol] 60 mg/dL Normal [facility] Comment on above: The drugs N-Acetylcy steine and Metamizole may falsely depress this assay. Reference Range HDL <40 mg/dL Low HDL Cholesterol HDL >or= 60 mg/dL High HDL Cholesterol Result Comment: The drugs N-Acetylcysteine and Metamizole may falsely depress this assay. Reference Range HDL <40 mg/dL Low HDL Cholesterol HDL >or= 60 mg/dL High HDL Cholesterol Performed By: #### L 100.0100, L501.9520, L506.0400, L500.4100, L500.4050, L501.9910 #### [facility] [address] [place], [place], [id number] ([address]) Serum or plasma cholesterol in VLDL measurement (mass/volume)Ordered By: Sarah Ambrocio on 04-05-2023 Cholesterol in VLDL [Mass/Vol] 9 mg/dL Normal 5-40 [facility] Comment on above: Performed By: #### L 100.0100, L501.9520, L506.0400, L500.4100, L500.4050, L501.9910 #### [facility] [address] [facility] [address] [place], [place], [id number] (913) Serum or plasma creatinine m easurement (mass/volume)Ordered By: Sarahdyan Ambrocio on 04-05-2023 Creatinine [Mass/Vol] 1.04 mg/dL Normal 0.70-1.30 [facility] Comment on above: The validity of the calculated GFR & GFRAA in patients over 70 years has not been determined. Clinical correlation is essential. Result Comment: The validity of the calculated GFR GFRAA in patients over 70 years has not been determined. Clinical correlation is essential. Performed By: #### L 100.0100, L501.9520, L506.0400, L500.4100, L500.4050, L501.9910 #### [facility] [address] [place], [place], [id number] (023) Serum or plasma low density lipoprotein (LDL) cholesterol measurement (mass/volume)Ordered By: Sarah Ambrocio on 04-05-2023 Cholesterol in LDL [Mass/Vol] 108 mg/dL Normal 0-130 [facility] Comment on above: Performed By: #### L 100.0100, L501.9520, L506.0400, L500.4100, L500.4050, L501.9910 #### [facility] [address] [place], [place], [id number] (925) Serum or plasma urea nitroge n measurement (mass/volume)Ordered By: Sarah Ambrocio on 04-05-2023 Urea nitrogen [Mass/Vol] 14 mg/dL Normal 7-18 [facility] Comment on above: Performed By: #### L 100.0100, L501.9520, L506.0400, L500.4100, L500.4050, L501.9910 #### [facility] [address] [place], [address] Thin prep Papanicolaou smear with manual screeningOrdered By: Sarah Ambrocio on 04-05-2023 Thin prep Papanicolaou smear with manual screening 22 U/L 15-37 [facility] Thin prep Papanicolaou smear with manual screening 6 5-15 [facility] - Chemistry and C hemistry - challengeOrdered By: Dr. Lilly on 06-27-2022 Free T4 [Mass/Vol] 1.19 ng/dL 0.76-1.46 [facility] No Panel InformationOrdered By: Dr. Lilly on 06-27-2022 Thyroid Stimulating Hormone (TSH) 2.63 uIU/mL 0.358-3.74 [facility] Absolute lymphocyte countOrd ered By: Dr. Lilly on 03-23-2022 Lymphocytes Auto (Unsp spec) [#/Vol] 1.56 10*3/uL 0.83-4.51 [facility] Basophil percentageOrdered B y: Dr. Lilly on 03-23-2022 Basophils/100 WBC (Bld) 0.4 % 0-1 [facility] Bilirubin [Mass/Vol] 0.60 mg/dL 0.20-1.00 [facility] Comment on above: For patients on eltr ombopag therapy, use of Dimension [place] TBIL is not recommended. Chloride [Moles/Vol] 104 mmol/L 98-107 [facility] Cholesterol [Mass/Vol] 184 mg/dL <200 [facility] Comment on above: <200 mg/dL Desirable 200-240 mg/dL Borderline >240 mg/dL High Risk Eosinophils/100 WBC (Bld) 1.4 % 0-5 [facility] Glucose [Mass/Vol] 103 mg/dL 74-106 [facility] Comment on above: Fasting Glucose resu lt from 100 to 125 mg/dL suggests IMPAIRED HOMEOSTASIS per A.D.A. criteria. Neutrophils (Bld) [#/Vol] 3.2 10*3/uL 2.0-7.7 [facility] Neutrophils/100 WBC (Bld) 57.6 % 47-70 [facility] Potassium [Moles/Vol] 4.1 mmol/L 3.5-5.1 [facility] Protein [Mass/Vol] 7.9 g/dL 6.4-8.2 [facility] Sodium [Moles/Vol] 137 mmol/L 136-145 [facility] Triglyceride [Mass/Vol] 73 mg/dL <199 [facility] Comment on above: The drugs N-Acetylcy steine and Metamizole may falsely depress this assay.Serum Triglycerides Reference Interval Normal <150 mg/dL Borderline high 150 - 199 mg/dL High 200 - 499 mg/dL Very High > or = 500 mg/dL WBC (Bld) [#/Vol] 5.6 10*3/uL 4.4-11.0 [facility] Blood erythrocytes count (nu mber/volume)Ordered By: Dr. Lilly on 03-23-2022 RBC (Bld) [#/Vol] 4.56 10*6/uL 4.6-6.2 [facility] Blood hemoglobin measurement (mass/volume)Ordered By: Dr. Lilly on 03-23-2022 Hemoglobin (Bld) [Mass/Vol] 16.1 g/dL 13.0-16.5 [facility] Blood lymphocytes/100 leukoc ytesOrdered By: Dr. Lilly on 03-23-2022 Lymphocytes/100 WBC (Bld) 27.9 % 19-41 [facility] Blood monocytes/100 leukocyt esOrdered By: Dr. Lilly on 03-23-2022 Monocytes/100 WBC (Bld) 12.3 % 0-10 [facility] Blood platelet mean volumeOr dered By: Dr. Lilly on 03-23-2022 Platelet mean volume (Bld) [Entitic vol] 9.4 fL 6.2-12.0 [facility] Determination of erythrocyte mean corpuscular volume (MCV)Ordered By: Dr. Lilly on 03-23-2022 MCV (RBC) [Entitic vol] 94.5 fL 80-94 [facility] Hematocrit Auto (Bld) [Volum e fraction]Ordered By: Dr. Lilly on 03-23-2022 Hematocrit (Bld) [Volume fraction] 43.1 % 40-54 [facility] - Chemistry and C hemistry - challengeOrdered By: Dr. Lilly on 03-23-2022 ALP [Catalytic activity/Vol] 77 U/L 45-117 [facility] ALT [Catalytic activity/Vol] 17 U/L 16-61 [facility] CO2 [Moles/Vol] 25.0 mmol/L 21.0-32.0 [facility] Globulin (S) [Mass/Vol] 3.8 g/dL 2.2-4.2 [facility] Urea nitrogen/Creatinine [Mass ratio] 13.2 mg/mg 10-20 [facility] - Hematology and Cell countsOrdered By: Dr. Lilly on 03-23-2022 Erythrocyte distribution width (RBC) [Entitic vol] 40.0 fL 35.1-43.9 [facility] Erythrocyte distribution width (RBC) [Ratio] 11.6 % 11.6-14.6 [facility] Immature granulocytes/100 WBC (Bld) 0.400 % 0.0-0.9 [facility] Comment on above: IG% - Immature Granu locytes (promyelocytes, myelocytes and metamyelocytes) > 1% indicates that a LEFT SHIFT is Present. MCH (RBC) [Entitic mass] 35.3 pg 27.0-32.0 [facility] Nucleated RBC/100 WBC (Bld) [Ratio] 0 % 0-5 [facility] MCHC Auto (RBC) [Mass/Vol]Or dered By: Dr. Lilly on 03-23-2022 MCHC (RBC) [Mass/Vol] 37.4 g/dL 32-36 [facility] No Panel InformationOrdered By: Dr. Lilly on 03-23-2022 Estimated GFR (MDRD) Amer 103 mL/min >60 [facility] Comment on above: GFR Calc Estimated GFR (MDRD) Non-Af Amer 85 mL/min >60 [facility] Comment on above: Non- GFR Calc Prostate Specific Antigen Screen 1.18 ng/mL 0.00-4.00 [facility] Comment on above: This test was perfor med using the TPSA assay method for the[employer] chemistry system. Values obtained with differentassay methods cannot be used interchangably.When changing PSA assays in the course of monitoring apatient, additional sequential testing should be carriedout to confirm baseline values. Thyroid Stimulating Hormone (TSH) 4.90 uIU/mL 0.358-3.74 [facility] Platelets bldOrdered By: Dr. Lilly on 03-23-2022 Platelets (Bld) [#/Vol] 247 10*3/uL 150-450 [facility] Serum or plasma albumin sakina urement (mass/volume)Ordered By: Dr. Lilly on 03-23-2022 Albumin [Mass/Vol] 4.1 g/dL 3.2-5.0 [facility] Serum or plasma albumin/glob ulin mass ratioOrdered By: Dr. Lilly on 03-23-2022 Albumin/Globulin [Mass ratio] 1.1 {ratio} 0.9-2.4 [facility] Serum or plasma calcium sakina urement (mass/volume)Ordered By: Dr. Lilly on 03-23-2022 Calcium [Mass/Vol] 8.8 mg/dL 8.5-10.1 [facility] Serum or plasma cholesterol in HDL measurement (mass/volume)Ordered By: Dr. Lilly on 03-23-2022 Cholesterol in HDL [Mass/Vol] 66 mg/dL >40 [facility] Comment on above: The drugs N-Acetylcy steine and Metamizole may falsely depress this assay. Reference Range HDL <40 mg/dL Low HDL Cholesterol HDL >or= 60 mg/dL High HDL Cholesterol Serum or plasma cholesterol in VLDL measurement (mass/volume)Ordered By: Dr. Lilly on 03-23-2022 Cholesterol in VLDL [Mass/Vol] 15 mg/dL 5-40 [facility] Serum or plasma creatinine m easurement (mass/volume)Ordered By: Dr. Lilly on 03-23-2022 Creatinine [Mass/Vol] 0.98 mg/dL 0.70-1.30 [facility] Comment on above: The validity of the calculated GFR & GFRAA in patients over 70 years has not been determined. Clinical correlation is essential. Serum or plasma low density lipoprotein (LDL) cholesterol measurement (mass/volume)Ordered By: Dr. Lilly on 03-23-2022 Cholesterol in LDL [Mass/Vol] 103 mg/dL 0-130 [facility] Serum or plasma urea nitroge n measurement (mass/volume)Ordered By: Dr. Lilly on 03-23-2022 Urea nitrogen [Mass/Vol] 13 mg/dL 7-18 [facility] Thin prep Papanicolaou smear with manual screeningOrdered By: Dr. Lilly on 03-23-2022 Thin prep Papanicolaou smear with manual screening 12 U/L 15-37 [facility] Thin prep Papanicolaou smear with manual screening 8 5-15 [facility] Vital Signs Date Time Vital Sign Value Performing Clinician Faci lity 08-06-2023 22:35-0400 Body temperature 97.6 [degF] [facility] 08-06-2023 22:35-0400 Diastolic blood pressure 94 mm[Hg] [facility] 08-06-2023 22:35-0400 Heart rate 78 /min [facility] 08-06-2023 22:35-0400 Respiratory rate 18 /min [facility] 08-06-2023 22:35-0400 SaO2% (BldA) [Mass fraction] 100 % [facility] 08-06-2023 22:35-0400 Systolic blood pressure 146 mm[Hg] [facility] 08-06-2023 17:56-0400 Body height 182.88 cm [facility] 08-06-2023 17:56-0400 Body mass index (BMI) [Ratio] 25 kg/m2 [facility] 08-06-2023 17:56-0400 Body weight 83.6 kg [facility] Encounters Encounter Date Encounter Type Care Provider Facility Start: 04-06-2024 ambulatory Sarah Cristóbal Facility:[facility] Start: 03-24-2024 Encounter for genera l adult medical examination with abnormal findings Sarah Ambrocio [facility] Start: 03-06-2024 End: 03-06-2024 ambulatory [facility] Facility:[facility] Start: 11-19-2023 Encounter for other preprocedural examination Antony Luis [facility] Start: 11-12-2023 End: 11-12-2023 ambulatory [facility] Facility:[facility] Start: 11-12-2023 End: 11-12-2023 [facility] Facility:[facility] Start: 08-06-2023 End: 08-06-2023 Emergency department patient visit [facility] Work Phone: Start: 04-05-2023 End: 04-05-2023 ambulatory [facility] Work Phone: Start: 04-05-2023 End: 04-05-2023 Patient encounter procedure [facility] Work Phone: Start: 04-05-2023 End: 04-05-2023 ambulatory [facility] Facility:[facility] Start: 03-22-2023 End: 03-22-2023 ambulatory [facility] Work Phone: Start: 03-22-2023 End: 03-22-2023 Patient encounter procedure [facility], [facility] Work Phone: Start: 06-27-2022 End: 06-27-2022 ambulatory [facility] Work Phone: Start: 06-27-2022 End: 06-27-2022 Patient encounter procedure [facility] Start: 03-23-2022 End: 03-23-2022 ambulatory [facility] Work Phone: Start: 03-23-2022 End: 03-23-2022 Patient encounter procedure [facility] Procedures Date Procedure Procedure Detail Performing Clinician Start: 08-06-2023 CT of soft tissues o f neck with contrast Start: 03-22-2023 Plain x-ray of pelvi s and lower extremity Start: 03-22-2023 X-ray of lumbar spin e, two or three views Plan of Treatment Date Care Activity Detail Author Start: 08-06-2023 [facility] Patient Education ED General All ergic Reactions [facility] Work Phone: Patient referral [facility] Work Phone: Payers Date Payer Category Payer Unknown [id number] 2023 Self-pay [id number] 2023 Unknown [id number] Unknown [id number] 2.16.8 [id number] Unknown [id number] 2.16.8 [id number] Unknown [id number] 2.16.8 [id number] Unknown [id number] 2.16.8 [id number] Unknown [id number] 2.16.8 [id number] Unknown [id number] 2.16.8 [id number] Social History Date Type Detail Facility Tobacco smoking stat [facility] Unknown if ever smoked [facility] Work Phone: Start: 1970 Sex Assigned At Male [facility] Start: 08-06-2023 Tobacco smoking stat [facility] Unknown if ever smoked [facility] Evaluation note Note Date & Type Note Facility Evaluation note No assessment information availa ble [facility] Work Phone: Chief Complaint and Reason for Visit Chief Complaint throat closure Summary Purpose Family History No Family History Records Found Advance Directives No Advanced Directives Records Found Additional Source Comments Goals (unrecognized section and content) Goals may be documented in a n alternate sectionGoals may be documented in an alternate sectionGoals may be documented in an alternate sectionGoals may be documented in an alternate sectionGoals may be documented in an alternate section Care Teams (unrecognized sec tion and content) Team Status: Active Member Role Status Dates Dr. Michael Lilly MD Family Provider Active Dr. Michael Lilly MD Primary Care Provider Active Team Status: Inactive Member Role Status Dates Dr. Michael Lilly MD Primary Care Prov ider, Attending Provider, Referring Provider Active Team Status: Inactive Member Role Status Dates Dr. Michael Lilly MD Primary Care Provider, Attendin g Provider Active Team Status: Active Member Role Status Dates Dr. Michael Lilly MD Family Provider Active Sarah Ambrocio NP-Jose Angel Primary Care Provider Active Team Status: Inactive Member Role Status Dates REGINALD Valadez Primary Care Provide r, Attending Provider, Referring Provider Active Team Status: Inactive Member Role Status Dates REGINALD Valadez Primary Care Provider Active Dr. Helen Santos MD Emergency Provider Active (unrecognized sect ion and content) No Status Records Found INFORMATION SOURCE (unrecogn ized section and content) DATE CREATED AUTHOR 03/25/2024 [facility] FOR RECORDS PERTAINING TO PATIENTS WHO ARE OR HAVE BEEN ENROLLED IN A CHEMICAL DEPENDENCY/SUBSTANCEABUSE PROGRAM, SOME INFORMATION MAY BE OMITTED. This clinical summary was aggregated from multiple sources. Caution should be exercised in using it in the provision of clinical care. This summary normalizes information from multiple sources, and as a consequence, information in this document may materially change the coding, format and clinical context of patient data. In addition, data may be omitted in some cases. CLINICAL DECISIONS SHOULD BE BASED ON THE PRIMARY CLINICAL RECORDS. [facility]. provides no warranty or guarantee of the accuracy or completeness of information in this document.
== END 2024-12-17 11:02 | disposition home or self-care (01) ==
PROVIDERS: Emergency Provider Surgery; PCP Nurse Practitioner Family; Visit Provider Surgery
DX: R07.1 Chest pain on breathing (principal); F41.8 Other specified anxiety disorders; Z79.899 Other long term (current) drug therapy
CPT/HCPCS: 71046; 80048; 83880; 85025; 85379; 93005; 96374; 99284; A4216

== ENCOUNTER → 2025-02-05 | Outpatient (CLI) | payer BC, SELFPAY ==
--- OUTSIDE RECORDS SUMMARY | 2025-02-05 05:56 | XMS RPT_ITS | CCD ---
Author Organization [facility] Care Team Providers Care Front Office Associate Name Role Phone Cristóbal LOG ROPER-CSarah Primary Care Provider Dr. Lauri Lazo DO Emergency Provider Sarah Ambrocio Referring Unavailable Sarah Ambrocio Attending Unavailable Sarah Ambrocio Primary Care Unavailable Sarah Ambrocio Primary Care Unavailable Lauri Lazo Attending Unavailabl e Sarah Ambrocio Primary Care Unavailable Sarah Ambrocio Attending Unavailable Medications Current Medications Medication Drug Class(es) Dates Sig (Normalized) Sig (Original) busPIRone hydrochloride 15 mg oral tablet (1 source) Start: 12-17-2024 take 1 tablet by mouth twice daily Buspirone 15 mg tablet Active 15 mg PO TWICE A DAY December 17, 2024 12:00am FLUoxetine 20 mg oral capsule (1 source) Serotonin Reuptake Inhibitor Start: 12-17-2024 take 1 capsule by mouth once daily Fluoxetine 20 mg capsule Active 20 mg PO DAILY December 17, 2024 12:00am meloxicam 15 mg oral tablet (1 source) Nonsteroidal Anti-inflammatory Drug Start: 12-17-2024 take 1 tablet by mouth once daily Meloxicam 15 mg tablet Active 15 mg PO DAILY December 17, 2024 12:00am tadalafil 20 mg oral tablet (1 source) Phosphodiesterase 5 Inhibitor Start: 12-17-2024 Tadalafil 20 mg tablet Active 20 mg PO NEEDED December 17, 2024 12:00am zolpidem tartrate 10 mg oral tablet (1 source) gamma-Aminobutyric Acid-ergic Agonist Start: 12-17-2024 take 1 tablet by mouth at bedtime as needed for sleep Zolpidem 10 mg tablet Active 10 mg PO AT BEDTIME NEEDED as needed for sleep December 17, 2024 12:00am Problems Active Problems Problem Classification Problem Date Documented Da te Episodic/Chronic Allergic reactions (2 sources) Allergic reaction; Translations: [Allergy, unspecified, initial encounter] 08-06-2023 Episodic Other lower respiratory disease (1 source) Chest pain on breathing; Translations: [Chest pain on breathing] Onset: 12-25-2024 Episodic Pleurisy; pneumothorax; pulmonary collapse (1 source) Pleurisy; Translations: [Pleurisy] 12-17-2024 Episodic Past or Other Problems Problem Classification Problem Date Documented Da te Episodic/Chronic Other screening for suspected conditions (not mental disorders or infectious disease) (1 source) Encounter for screening for malignant neoplasm of prostate; Translations: [Encounter for screening for malignant neoplasm of prostate] Onset: 03-06-2024 Episodic Results Test Name Value Interpretation Reference Range Facility 12 Lead EKGon 12-17-2024 12 Lead EKG [facility] [address] [place] [address] 12 Lead EKG 12/17/24 0840 MR#: [id number] Acct: [id number] Name: WILMAR TURCIOS Rep #: [id number] : 1970 54 From: Danielito Reynolds MD Attending Dr: Status: DEP ER Ordering Dr: Lauri Lazo DO Date: 5 Location: ED Sex: M C Admitted: Test Reason : PAIN WHEN BREATHING Blood Pressure : */* mmHG Vent. Rate : 71 BPM Atrial Rate : 71 BPM P-R Int : 154 ms QRS Dur : 100 ms QT Int : 398 ms P-R-T Axes : 45 -46 19 degrees QTcB Int : 432 ms Normal sinus rhythm Left anterior fascicular block Abnormal ECG Confirmed by DANIELITO REYNOLDS MD ([id number]), market editor NILDA RAMOS ([id number]) on 12/21/2024 8:19:06 AM Referred By: AK Confirmed By: DANIELITO REYNOLDS MD 12/21/24 0819 Date Danielito Reynolds MD CC: LOG ROPER-C Sarah Ambrocio; Dr. Lauri Lazo DO Signed Normal [facility] Absolute lymphocyte countOrd ered By: Lauri Lazo on 12-17-2024 Lymphocytes Auto (Unsp spec) [#/Vol] 1.12 10*3/uL 0.83-4.51 [facility] Absolute neutrophil countOrd ered By: Lauriviktor Lazo on 12-17-2024 Neutrophils (Bld) [#/Vol] 2.6 10*3/uL 2.0-7.7 [facility] Anion gap in Serum or Plasma Ordered By: Lauri Lazo on 12-17-2024 Anion gap [Moles/Vol] 14 mmol/L 5-15 [facility] Automated lymphocyte count a s percentage of total leukocytesOrdered By: Lauri Lazo on 12-17-2024 Lymphocytes/100 WBC Auto (Unsp spec) 23.8 % 19-41 [facility] BUN/creatinine ratioOrdered By: Lauri Lazo on 12-17-2024 Urea nitrogen/Creatinine [Mass ratio] 14.7 mg/mg 10- [facility] Basic Metabolic Profile (BMP )on 12-17-2024 BUN/CRE 14.7 RATIO Normal - [facility] Comment on above: Performed By: #### L 503.7505, L500.2500, L100.0100, L300.8000 ####[facility] [address] [place], [address] Calcium [Mass/Vol] 8.9 mg/dL Normal 7.6-11.0 [facility] Comment on above: Performed By: #### L 503.7505, L500.2500, L100.0100, L300.8000 ####[facility] [address] [place], [address] Chloride [Moles/Vol] 99 mmol/L Normal 98-108 [facility] Comment on above: Performed By: #### L 503.7505, L500.2500, L100.0100, L300.8000 ####[facility] [address] [place], [address] CO2 [Moles/Vol] 21.6 mmol/L Normal 21.0-32.0 [facility] Comment on above: Performed By: #### L 503.7505, L500.2500, L100.0100, L300.8000 ####[facility] [address] [place], [address] Creatinine [Mass/Vol] 0.97 mg/dL Normal 0.70-1.20 [facility] Comment on above: Performed By: #### L 503.7505, L500.2500, L100.0100, L300.8000 ####[facility] [address] [place], [address] ECRCL 93.80 ml/min Normal 50-250 [facility] Comment on above: Performed By: #### L 503.7505, L500.2500, L100.0100, L300.8000 ####[facility] [address] [place], [address] GAP 14 Normal 5-15 [facility] Comment on above: Performed By: #### L 503.7505, L500.2500, L100.0100, L300.8000 ####[facility] [address] [place], [address] GFR/1.73 sq M.predicted among non-blacks MDRD (S/P/Bld) [Vol rate/Area] 93 mL/min/{1.73_m2} Normal >60 [facility] Comment on above: Result Comment: mL/m in/1.73m2 CKD-EPI Creatinine Equation (2020) Performed By: #### L 503.7505, L500.2500, L100.0100, L300.8000 ####[facility] [address] [place], [address] Glucose [Mass/Vol] 104 mg/dL High 70-99 [facility] Comment on above: Performed By: #### L 503.7505, L500.2500, L100.0100, L300.8000 ####[facility] [address] [place], [address] Potassium [Moles/Vol] 4.2 mmol/L Normal 3.3-5.1 [facility] Comment on above: Performed By: #### L 503.7505, L500.2500, L100.0100, L300.8000 ####[facility] [address] [place], [address] Sodium [Moles/Vol] 134 mmol/L Normal 133-145 [facility] Comment on above: Performed By: #### L 503.7505, L500.2500, L100.0100, L300.8000 ####[facility] [address] [place], [address] Urea nitrogen [Mass/Vol] 14 mg/dL Normal 4-19 [facility] Comment on above: Performed By: #### L 503.7505, L500.2500, L100.0100, L300.8000 ####[facility] [address] [place], [address] Basophil percentageOrdered B y: Lauri Lazo on 12-17-2024 Basophils/100 WBC (Bld) 0.6 % 0-1 [facility] CBC W/Diff, Automatedon 11-19 Absolute Lymph 1.12 X10 3/uL Normal 0.83-4.51 [facility] Comment on above: Performed By: #### L 503.7505, L500.2500, L100.0100, L300.8000 #### [facility] [address] [place], [address] Absolute Neut 2.6 X10 3/uL Normal 2.0-7.7 [facility] Comment on above: Performed By: #### L 503.7505, L500.2500, L100.0100, L300.8000 #### [facility] [address] [place], [address] Basophils/100 WBC (Bld) 0.6 % Normal 0-1 [facility] Comment on above: Performed By: #### L 503.7505, L500.2500, L100.0100, L300.8000 #### [facility] [address] [place], [address] Eosinophils/100 WBC (Bld) 3.2 % Normal 0-5 [facility] Comment on above: Performed By: #### L 503.7505, L500.2500, L100.0100, L300.8000 #### [facility] [address] [place], [address] Erythrocyte distribution width (RBC) [Ratio] 12.0 % Normal 11.6-14.6 [facility] Comment on above: Performed By: #### L 503.7505, L500.2500, L100.0100, L300.8000 #### [facility] [address] [place], [address] Hematocrit (Bld) [Volume fraction] 40.9 % Normal 40-54 [facility] Comment on above: Performed By: #### L 503.7505, L500.2500, L100.0100, L300.8000 #### [facility] [address] [place], [address] Hemoglobin (Bld) [Mass/Vol] 14.4 g/dL Normal 13.0-16.5 [facility] Comment on above: Performed By: #### L 503.7505, L500.2500, L100.0100, L300.8000 #### [facility] [address] [place], [address] IG% 0.400 Normal 0.0-0.9 [facility] Comment on above: Result Comment: IG% - Immature Granulocytes (promyelocytes, myelocytes and metamyelocytes) > 1% indicates that a LEFT SHIFT is Present. Performed By: #### L 503.7505, L500.2500, L100.0100, L300.8000 #### [facility] [address] [place], [address] Lymphocytes/100 WBC (Bld) 23.8 % Normal 19-41 [facility] Comment on above: Performed By: #### L 503.7505, L500.2500, L100.0100, L300.8000 #### [facility] [address] [place], [address] MCH (RBC) [Entitic mass] 34.0 pg High 27.0-32.0 [facility] Comment on above: Performed By: #### L 503.7505, L500.2500, L100.0100, L300.8000 #### [facility] [address] [place], [address] MCHC (RBC) [Mass/Vol] 35.2 g/dL Normal 32-36 [facility] Comment on above: Performed By: #### L 503.7505, L500.2500, L100.0100, L300.8000 #### [facility] [address] [place], [address] MCV (RBC) [Entitic vol] 96.5 fL High 80-94 [facility] Comment on above: Performed By: #### L 503.7505, L500.2500, L100.0100, L300.8000 #### [facility] [address] [place], [address] Monocytes/100 WBC (Bld) 17.0 % High 0-10 [facility] Comment on above: Performed By: #### L 503.7505, L500.2500, L100.0100, L300.8000 #### [facility] [address] [place], [address] Neutrophils/100 WBC (Bld) 55.0 % Normal 47-70 [facility] Comment on above: Performed By: #### L 503.7505, L500.2500, L100.0100, L300.8000 #### [facility] [address] [place], [address] Nucleated RBC (Bld) [#/Vol] 0 10*3/uL Normal 0-5 [facility] Comment on above: Performed By: #### L 503.7505, L500.2500, L100.0100, L300.8000 #### [facility] [address] [place], [address] Platelet mean volume (Bld) [Entitic vol] 8.9 fL Normal 6.2-12.0 [facility] Comment on above: Performed By: #### L 503.7505, L500.2500, L100.0100, L300.8000 #### [facility] [address] [place], [address] Platelets (Bld) [#/Vol] 269 10*3/uL Normal 150-450 [facility] Comment on above: Performed By: #### L 503.7505, L500.2500, L100.0100, L300.8000 #### [facility] [address] [place], [address] RBC (Bld) [#/Vol] 4.24 10*6/uL Low 4.6-6.2 [facility] Comment on above: Performed By: #### L 503.7505, L500.2500, L100.0100, L300.8000 #### [facility] [address] [place], [address] RDW SD 42.6 fl Normal 35.1-43.9 [facility] Comment on above: Performed By: #### L 503.7505, L500.2500, L100.0100, L300.8000 #### [facility] [address] [place], [address] WBC (Bld) [#/Vol] 4.7 10*3/uL Normal 4.4-11.0 [facility] Comment on above: Performed By: #### L 503.7505, L500.2500, L100.0100, L300.8000 #### [facility] [address] [place], [address] Carbon dioxide, total [Moles /volume] in Central venous bloodOrdered By: Lauri Lazo on 12-17-2024 CO2 [Moles/Vol] 21.6 mmol/L 21.0-32.0 [facility] Chest PA and Lateralon 12-17 Chest PA and Lateral [facility] Imaging Services [address] [address] Chest PA and Lateral MR#: [id number] Acct: [id number] Name: WILMAR TURCIOS Rep #: [id number] : 1970 M 54 From: Michael Riley PCP: REGINALD Valadez Status: REG ER Study: Chest PA and Lateral Date of Exam: 12/17/24 Exam# [id number] Ordering Dr: Lauri Lazo DO PROCEDURE: CHEST PA AND LATERAL 12/17/2024 REASON FOR EXAM: SHORTNESS OF BREATH TECHNIQUE: Three-view PA and lateral chest. COMPARISON: None. RAD/Chest PA and Lateral IMPRESSION: At least mild left acromioclavicular joint degenerative changes are seen. Mild thoracic spine degenerative changes are seen, along with early DISH. No acute osseous changes noted. Lungs appear clear. No pleural effusion or pneumothorax is noted. The cardiomediastinal silhouette is within the normal range for age. No evidence of acute cardiopulmonary disease. Reading Location: [place] [address] CC: LOG ROPER-C Sarah Ambrocio; Dr. Lauri Lazo DO Encoding Machine Operator: Signed Normal [facility] Chloride assayOrdered By: Tommy Lazo on 12-17-2024 Chloride [Moles/Vol] 99 mmol/L 98-108 [facility] D-Dimer Quantitative (DVT/PE )on 12-17-2024 D-DIMER QUANT 0.38 FEU/ug/m Normal 0.27-0.49 [facility] Comment on above: Result Comment: NORM AL D-Dimer level (<0.50) indicates no DVT or PE. Performed By: #### L 503.7505, L500.2500, L100.0100, L300.8000 #### [facility] [address] [facility] [place], [address] Emergency Department Summary on 12-17-2024 Emergency Department Summary [facility] Medical Records Department [address] [place] [address] Emergency Department Summary 12/17/24 MR#: [id number] Acct: [id number] Name: WILMAR TURCIOS Rep #: [id number] : 1970 54 From: Lauri Lazo DO PCP: REGINALD Valadez Status:REG ER Location: ED HPI History of Present Illness Chief Complaint: Chest Other Narrative Narrative: Chief complaint and HPI: Pain with respiratory inspiration. 54-year-old male with past medical history of anxiety, depression, insomnia presents for evaluation of pain with respiratory inspiration. Onset of symptoms approximately 1 hour. Patient states at rest he has no pain however anytime he takes a deep breath then he develops a sharp stabbing pain in his chest. He states it develops about fdc through the breath. He denies any fever, chills, cough, shortness of breath, true chest pain, abdominal pain, nausea, vomiting, bilateral lower extremity pain or swelling. He denies any history of DVT/PE. Denies any history of recent travel. Non-smoker. Denies any injury. Review of systems: See HPI Medications: As listed on the chart Allergies: As listed on the chart PFSH: Per chart Vital signs: As listed on the chart. Reviewed. Physical exam: Gen: A O x3, NAD Head: Normocephalic, atraumatic Eyes: No sclera icterus, conjunctiva clear ENT: Moist mucous membranes Neck: Trachea midline, No JVD CV: RRR, no murmurs, no peripheral edema Resp: Lungs CTA BL, no w/r/c GI: Abd soft, non-distended, non-tender, no r/r/g Musc: Full ROM, no deformity Skin: Warm, dry Neuro: Alert, oriented, grossly intact, sensation intact Psych: Cooperative, appropriate mood and affect [facility] Medical History (Updated 12/17/24 @ 10:[address] Lauri Lazo, DO) Anxiety and depression Home Medications ???Medication ???Instructions ???Recorded ???Last Taken ???Type buspirone 15 mg tablet 15 mg PO BID 12/17/24 Unknown Hist ory fluoxetine 20 mg capsule 20 mg PO DAILY 12/17/24 Unknown Hi story meloxicam 15 mg tablet 15 mg PO DAILY 12/17/24 Unknown Hi story tadalafil 20 mg tablet 20 mg PO PRN 12/17/24 Unknown Hist ory zolpidem 10 mg tablet 10 mg PO QHS PRN PRN sleep 5 Unknown History Allergy/AdvReac Type Severity Reaction Status Date / Time No Known Allergies Allergy Verified 12/17/24 08:32 Social History Smoking Status: Never smoker EXAM Physical Exam Const Vital Signs: 12/17/24 08:31 12/17/24 08:48 12/17/24 10:31 Temperature 98.3 F Temperature Source Oral Pulse Rate 70 60 Respiratory Rate 18 15 Respiratory Effort Normal Non-Labored Blood Pressure 159/82 H 135/90 H Blood Pressure Mean 107 105 Pulse Ox 100 99 Oxygen Delivery Method Room Air Room Air MDM MDM MDM Narrative Medical decision making narrative: 54-year-old male with past medical history of anxiety, depression, insomnia presents for evaluation of pain with respiratory inspiration. Onset of symptoms approximately 1 hour. Patient states at rest he has no pain however anytime he takes a deep breath then he develops a sharp stabbing pain in his chest. He states it develops about fdc through the breath. He denies shortness of breath or true chest pain. Differential diagnosis includes but is not limited to pleurisy, costochondritis, myofascial spasm, pneumothorax, PE, suspect less likely CHF. HPI is not consistent with ACS. IM Toradol ordered for pain. Respiratory workup ordered. CBC without leukocytosis or anemia. Platelets unremarkable. D-dimer unremarkable. BMP unremarkable. BNP unremarkable. At this point in time, no etiology to explain patient's pain with inspiration although I expect it is pleurisy. On reevaluation after receiving Toradol, patient states his pain has resolved. He is able to take a deep breath. Patient was updated of all his results and the plan for discharge home. Follow-up with primary care physician. He confirmed understanding of the plan. Return precautions explained. EKG: Interpreted by me/EM physician: EKG shows normal sinus rhythm with heart rate 71. No acute ischemic changes. Diagnostic: Interpreted by me/EM physician: Chest x-ray without pneumonia, effusion, cardiomegaly, pneumothorax. Radiology in agreement. Impression: 1. Pain with deep inspiration, suspect pleurisy 2. HTN, to be confirmed Lab Data Labs: Laboratory Results - last 24 hr 12/17/24 08:42 WBC 4.7 RBC 4.24 L Hgb 14.4 Hct 40.9 MCV 96.5 H MCH 34.0 H MCHC 35.2 RDW Std Deviation 42.6 RDW Coeff of Incole 12.0 Plt Count 269 MPV 8.9 Immature Gran % (Auto) 0.400 Neut % (Auto) 55.0 Lymph % (Auto) 23.8 [place] % (Auto) 17.0 H Eos % (Auto) 3.2 (more content not included)... Normal [facility] Eosinophil percentageOrdered By: [facility] on 12-17-2024 Eosinophils/100 WBC (Bld) 3.2 % 0-5 [facility] Erythrocyte distribution wid th ratioOrdered By: [facility] on 12-17-2024 Erythrocyte distribution width (RBC) [Ratio] 12.0 % 11.6-14.6 [facility] Erythrocyte distribution wid th standard deviationOrdered By: [facility] on 12-17-2024 Erythrocyte distribution width (RBC) [Ratio] 42.6 fl 35.1-43.9 [facility] Glomerular filtration rate ( GFR) estimation/1.73 sq m using serum, plasma, or whole bOrdered By: Lauri Lazo on 12-17-2024 GFR/1.73 sq M.predicted among non-blacks MDRD (S/P/Bld) [Vol rate/Area] 93 mL/min/{1.73_m2} >60 [facility] Comment on above: mL/min/1.73m2 CKD-EP I Creatinine Equation (2020) Hematocrit Auto (Bld) [Volum e fraction]Ordered By: Lauri Lazo on 12-17-2024 Hematocrit (Bld) [Volume fraction] 40.9 % 40-54 [facility] Hemoglobin measurementOrdere d By: Lauri Lazo on 12-17-2024 Hemoglobin (Bld) [Mass/Vol] 14.4 g/dL 13.0-16.5 [facility] Immature granulocytes/100 WB C Auto (Bld)Ordered By: Lauriviktor Lazo on 12-17-2024 Immature granulocytes/100 WBC (Bld) 0.400 % 0.0-0.9 [facility] Comment on above: IG% - Immature Granu locytes (promyelocytes, myelocytes and metamyelocytes) > 1% indicates that a LEFT SHIFT is Present. MCV (mean corpuscular volume ) determinationOrdered By: Lauri Lazo on 12-17-2024 MCV (RBC) [Entitic vol] 96.5 fL High 80-94 [facility] Mean corpuscular hemoglobin (MCH) determinationOrdered By: Lauriviktor Lazo on 12-17-2024 MCH (RBC) [Entitic mass] 34.0 pg High 27.0-32.0 [facility] Mean corpuscular hemoglobin concentration (MCHC) determinationOrdered By: [facility] on 12-17-2024 MCHC (RBC) [Mass/Vol] 35.2 g/dL 32-36 [facility] Mean platelet volume determi nationOrdered By: Lauriviktor Lazo on 12-17-2024 Platelet mean volume (Bld) [Entitic vol] 8.9 fL 6.2-12.0 [facility] Monocyte percentageOrdered B y: Lauri Lazo on 12-17-2024 Monocytes/100 WBC (Bld) 17.0 % High 0-10 [facility] Natriuretic peptide.B prohor luigi N-Terminal [Mass/volume] in Serum or PlasmaOrdered By: Lauri Lazo on 12-17-2024 Natriuretic peptide.B prohormone N-Terminal [Mass/Vol] < 36 pg/mL <900 [facility] Comment on above: Heart Failure Unlike ly: < 300 pg/mLHeart Failure Likely< 50 Years: > 450 pg/mL50-75 Years: > 900 pg/mL>75 Years: > 1800 pg/mL Neutrophil percentageOrdered By: Lauri Lazo on 12-17-2024 Neutrophils/100 WBC (Bld) 55.0 % 47-70 [facility] Nucleated red blood cell per centageOrdered By: Lauri Lazo on 12-17-2024 Nucleated RBC/100 WBC (Bld) [Ratio] 0 % 0-5 [facility] Platelet countOrdered By: Tommy Lazo on 12-17-2024 Platelets (Bld) [#/Vol] 269 10*3/uL 150-450 [facility] Potassium measurement (mass/ volume)Ordered By: Lauri Lazo on 12-17-2024 Potassium (Unsp spec) [Mass/Vol] 4.2 mmol/L 3.3-5.1 [facility] Pro- Brain NATRIURETIC PEPTI Jem 12-17-2024 proBNP < 36 Normal <=900 [facility] Comment on above: Result Comment: Hear t Failure Unlikely: < 300 pg/mL Heart Failure Likely < 50 Years: > 450 pg/mL 50-75 Years: > 900 pg/mL >75 Years: > 1800 pg/mL Performed By: #### L 503.7505, L500.2500, L100.0100, L300.8000 ####[facility] [address] [place], [place], [id number] RBC Auto (Bld) [#/Vol]Ordere d By: Lauri Lazo on 12-17-2024 RBC (Bld) [#/Vol] 4.24 10*6/uL Low 4.6-6.2 [facility] Serum creatinine measurement (mass/volume)Ordered By: Lauri Lazo on 12-17-2024 Creatinine [Mass/Vol] 0.97 mg/dL 0.70-1.20 [facility] Serum glucose measurement (m ass/volume)Ordered By: Lauri Lazo on 12-17-2024 Glucose [Mass/Vol] 104 mg/dL High 70-99 [facility] Serum or plasma calcium sakina urement (mass/volume)Ordered By: Lauri Abdul on 12-17-2024 Calcium [Mass/Vol] 8.9 mg/dL 7.6-11.0 [facility] Serum or plasma urea nitroge n measurement (mass/volume)Ordered By: Lauri Lazo on 12-17-2024 Urea nitrogen [Mass/Vol] 14 mg/dL 4-19 [facility] Sodium levelOrdered By: Robinson Lazo on 12-17-2024 Sodium [Moles/Vol] 134 mmol/L 133-145 [facility] White blood cell (WBC) count Ordered By: Lauri Lazo on 12-17-2024 WBC (Bld) [#/Vol] 4.7 10*3/uL 4.4-11.0 [facility] CBC W/Diff, Automatedon 10- Absolute Lymph 1.32 X10 3/uL Normal 0.83-4.51 [facility] Comment on above: Performed By: #### L 501.9520, L100.0100, L506.0400, L506.1000, L500.4100, L500.4050 #### [facility] [address] [place], [place], [address] Absolute Neut 2.4 X10 3/uL Normal 2.0-7.7 [facility] Comment on above: Performed By: #### L 501.9520, L100.0100, L506.0400, L506.1000, L500.4100, L500.4050 #### [facility] [address] [place], [address] Basophils/100 WBC (Bld) 0.8 % Normal 0-1 [facility] Comment on above: Performed By: #### L 501.9520, L100.0100, L506.0400, L506.1000, L500.4100, L500.4050 #### [facility] [address] [place], [address] Eosinophils/100 WBC (Bld) 2.7 % Normal 0-5 [facility] Comment on above: Performed By: #### L 501.9520, L100.0100, L506.0400, L506.1000, L500.4100, L500.4050 #### [facility] [address] [place], [address] Erythrocyte distribution width (RBC) [Ratio] 11.9 % Normal 11.6-14.6 [facility] Comment on above: Performed By: #### L 501.9520, L100.0100, L506.0400, L506.1000, L500.4100, L500.4050 #### [facility] [address] [place], [address] Hematocrit (Bld) [Volume fraction] 42.4 % Normal 40-54 [facility] Comment on above: Performed By: #### L [id number], L100.0100, L506.0400, L506.1000, L500.4100, L500.4050 #### [facility] [address] [place], [address] Hemoglobin (Bld) [Mass/Vol] 14.8 g/dL Normal 13.0-16.5 [facility] Comment on above: Performed By: #### L [id number], L100.0100, L506.0400, L506.1000, L500.4100, L500.4050 #### [facility] [address] [place], [address] IG% 0.400 Normal 0.0-0.9 [facility] Comment on above: Result Comment: IG% - Immature Granulocytes (promyelocytes, myelocytes and metamyelocytes) > 1% indicates that a LEFT SHIFT is Present. Performed By: #### L [id number], L100.0100, L506.0400, L506.1000, L500.4100, L500.4050 #### [facility] [address] [place], [address] Lymphocytes/100 WBC (Bld) 27.0 % Normal 19-41 [facility] Comment on above: Performed By: #### L [id number], L100.0100, L506.0400, L506.1000, L500.4100, L500.4050 #### [facility] [address] [place], [address] MCH (RBC) [Entitic mass] 34.0 pg High 27.0-32.0 [facility] Comment on above: Performed By: #### L [id number], L100.0100, L506.0400, L506.1000, L500.4100, L500.4050 #### [facility] [address] [place], [address] MCHC (RBC) [Mass/Vol] 34.9 g/dL Normal 32-36 [facility] Comment on above: Performed By: #### L [id number], L100.0100, L506.0400, L506.1000, L500.4100, L500.4050 #### [facility] [address] [place], [address] MCV (RBC) [Entitic vol] 97.5 fL High 80-94 [facility] Comment on above: Performed By: #### L [id number], L100.0100, L506.0400, L506.1000, L500.4100, L500.4050 #### [facility] [address] [place], [address] Monocytes/100 WBC (Bld) 19.7 % High 0-10 [facility] Comment on above: Performed By: #### L [id number], L100.0100, L506.0400, L506.1000, L500.4100, L500.4050 #### [facility] [address] [place], [address] Neutrophils/100 WBC (Bld) 49.4 % Normal 47-70 [facility] Comment on above: Performed By: #### L [id number], L100.0100, L506.0400, L506.1000, L500.4100, L500.4050 #### [facility] [address] [place], [address] Nucleated RBC (Bld) [#/Vol] 0 10*3/uL Normal 0-5 [facility] Comment on above: Performed By: #### L [id number], L100.0100, L506.0400, L506.1000, L500.4100, L500.4050 #### [facility] [address] [place], [address] Platelet mean volume (Bld) [Entitic vol] 9.2 fL Normal 6.2-12.0 [facility] Comment on above: Performed By: #### L [id number], L100.0100, L506.0400, L506.1000, L500.4100, L500.4050 #### [facility] [address] [place], [address] Platelets (Bld) [#/Vol] 290 10*3/uL Normal 150-450 [facility] Comment on above: Performed By: #### L [id number], L100.0100, L506.0400, L506.1000, L500.4100, L500.4050 #### [facility] [address] [place], [address] RBC (Bld) [#/Vol] 4.35 10*6/uL Low 4.6-6.2 [facility] Comment on above: Performed By: #### L [id number], L100.0100, L506.0400, L506.1000, L500.4100, L500.4050 #### [facility] [address] [place], [address] RDW SD 43.4 fl Normal 35.1-43.9 [facility] Comment on above: Performed By: #### L [id number], L100.0100, L506.0400, L506.1000, L500.4100, L500.4050 #### [facility] [address] [place], [address] WBC (Bld) [#/Vol] 4.9 10*3/uL Normal 4.4-11.0 [facility] Comment on above: Performed By: #### L [id number], L100.0100, L506.0400, L506.1000, L500.4100, L500.4050 #### [facility] [address] [place], [address] Comprehensive Metabolic [facility] 03-06-2024 Albumin [Mass/Vol] 3.9 g/dL Normal 3.2-5.0 [facility] Comment on above: Order Comment: CBCD Performed By: #### L [id number], L100.0100, L506.0400, L506.1000, L500.4100, L500.4050 #### [facility] [address] [place], [address] Albumin/Globulin [Mass ratio] 1.2 {ratio} Normal 0.9-2.4 [facility] Comment on above: Order Comment: CBCD Performed By: #### L [id number], L100.0100, L506.0400, L506.1000, L500.4100, L500.4050 #### [facility] [address] [place], [address] ALK P 78 U/L Normal 45-117 [facility] Comment on above: Order Comment: CBCD Performed By: #### L [id number], L100.0100, L506.0400, L506.1000, L500.4100, L500.4050 #### [facility] [address] [place], [address] ALT [Catalytic activity/Vol] 15 U/L Low 16-61 [facility] Comment on above: Order Comment: CBCD Performed By: #### L [id number], L100.0100, L506.0400, L506.1000, L500.4100, L500.4050 #### [facility] [address] [place], [address] AST [Catalytic activity/Vol] 23 U/L Normal 15-37 [facility] Comment on above: Order Comment: CBCD Performed By: #### L [id number], L100.0100, L506.0400, L506.1000, L500.4100, L500.4050 #### [facility] [address] [place], [address] Bilirubin [Mass/Vol] 0.50 mg/dL Normal 0.20-1.00 [facility] Comment on above: Order Comment: CBCD Result Comment: For patients on eltrombopag therapy, use of Dimension [place] TBIL is not recommended. Performed By: #### L 501.9520, L100.0100, L506.0400, L506.1000, L500.4100, L500.4050 #### [facility] [address] [place], [address] BUN/CRE 16.3 RATIO Normal 10-20 [facility] Comment on above: Order Comment: CBCD Performed By: #### L [id number], L100.0100, L506.0400, L506.1000, L500.4100, L500.4050 #### [facility] [address] [place], [address] CA,Total 8.4 mg/dL Low 8.5-10.1 [facility] Comment on above: Order Comment: CBCD Performed By: #### L 501.9520, L100.0100, L506.0400, L506.1000, L500.4100, L500.4050 #### [facility] [address] [place], [address] Chloride [Moles/Vol] 105 mmol/L Normal 98-107 [facility] Comment on above: Order Comment: CBCD Performed By: #### L 501.9520, L100.0100, L506.0400, L506.1000, L500.4100, L500.4050 #### [facility] [address] [place], [address] CO2 [Moles/Vol] 24.0 mmol/L Normal 21.0-32.0 [facility] Comment on above: Order Comment: CBCD Performed By: #### L [id number], L100.0100, L506.0400, L506.1000, L500.4100, L500.4050 #### [facility] [address] [place], [address] Creatinine [Mass/Vol] 0.98 mg/dL Normal 0.70-1.30 [facility] Comment on above: Order Comment: CBCD Result Comment: The validity of the calculated GFR GFRAA in patients over 70 years has not been determined. Clinical correlation is essential. Performed By: #### L 501.9520, L100.0100, L506.0400, L506.1000, L500.4100, L500.4050 #### [facility] [address] [place], [address] EST GFR - AA 103 mL/min Normal >60 [facility] Comment on above: Order Comment: CBCD Result Comment: Afri can [place] GFR Calc Performed By: #### L 501.9520, L100.0100, L506.0400, L506.1000, L500.4100, L500.4050 #### [facility] [address] [place], [address] GAP 5 Normal 5-15 [facility] Comment on above: Order Comment: CBCD Performed By: #### L [id number], L100.0100, L506.0400, L506.1000, L500.4100, L500.4050 #### [facility] [address] [place], [address] GFR/1.73 sq M.predicted among non-blacks MDRD (S/P/Bld) [Vol rate/Area] 85 mL/min/{1.73_m2} Normal >60 [facility] Comment on above: Order Comment: CBCD Result Comment: Non- GFR Calc Performed By: #### L [id number], L100.0100, L506.0400, L506.1000, L500.4100, L500.4050 #### [facility] [address] [place], [address] Globulin (S) [Mass/Vol] 3.3 g/dL Normal 2.2-4.2 [facility] Comment on above: Order Comment: CBCD Performed By: #### L [id number], L100.0100, L506.0400, L506.1000, L500.4100, L500.4050 #### [facility] [address] [place], [address] Glucose [Mass/Vol] 103 mg/dL Normal 74-106 [facility] Comment on above: Order Comment: CBCD Result Comment: Fast ing Glucose result from 100 to 125 mg/dL suggests IMPAIRED HOMEOSTASIS per A.D.A. criteria. Performed By: #### L 501.9520, L100.0100, L506.0400, L506.1000, L500.4100, L500.4050 #### [facility] [address] [place], [address] Potassium [Moles/Vol] 4.2 mmol/L Normal 3.5-5.1 [facility] Comment on above: Order Comment: CBCD Performed By: #### L [id number], L100.0100, L506.0400, L506.1000, L500.4100, L500.4050 #### [facility] [address] [place], [address] Sodium [Moles/Vol] 134 mmol/L Low 136-145 [facility] Comment on above: Order Comment: CBCD Performed By: #### L 501.9520, L100.0100, L506.0400, L506.1000, L500.4100, L500.4050 #### [facility] [address] [place], [address] T PROT 7.2 g/dL Normal 6.4-8.2 [facility] Comment on above: Order Comment: CBCD Performed By: #### L [id number], L100.0100, L506.0400, L506.1000, L500.4100, L500.4050 #### [facility] [address] [place], [address] Urea nitrogen [Mass/Vol] 16 mg/dL Normal 7-18 [facility] Comment on above: Order Comment: CBCD Performed By: #### L [id number], L100.0100, L506.0400, L506.1000, L500.4100, L500.4050 #### [facility] [address] [place], [address] Lipid Profileon 03-06-2024 Cholesterol [Mass/Vol] 168 mg/dL Normal 200 [facility] Comment on above: Order Comment: CBCD Result Comment: <200 mg/dL Desirable 200-240 mg/dL Borderline >240 mg/dL High Risk Performed By: #### L 501.9520, L100.0100, L506.0400, L506.1000, L500.4100, L500.4050 #### [facility] [address] [place], [address] Cholesterol in HDL [Mass/Vol] 82 mg/dL Normal [facility] Comment on above: Order Comment: CBCD Result Comment: The drugs N-Acetylcysteine and Metamizole may falsely depress this assay. Reference Range HDL <40 mg/dL Low HDL Cholesterol HDL >or= 60 mg/dL High HDL Cholesterol Performed By: #### L 501.9520, L100.0100, L506.0400, L506.1000, L500.4100, L500.4050 #### [facility] [address] [place], [address] Cholesterol in LDL [Mass/Vol] 80 mg/dL Normal 0-130 [facility] Comment on above: Order Comment: CBCD Performed By: #### L [id number], L100.0100, L506.0400, L506.1000, L500.4100, L500.4050 #### [facility] [address] [place], [address] Cholesterol in VLDL [Mass/Vol] 6 mg/dL Normal 5-40 [facility] Comment on above: Order Comment: CBCD Performed By: #### L [id number], L100.0100, L506.0400, L506.1000, L500.4100, L500.4050 #### [facility] [address] [place], [address] Triglyceride [Mass/Vol] 30 mg/dL Normal [facility] Comment on above: Order Comment: CBCD Result Comment: The drugs N-Acetylcysteine and Metamizole may falsely depress this assay. Serum Triglycerides Reference Interval Normal <150 mg/dL Borderline high 150 - 199 mg/dL High 200 - 499 mg/dL Very High > or = 500 mg/dL Performed By: #### L 501.9520, L100.0100, L506.0400, L506.1000, L500.4100, L500.4050 #### [facility] [address] [place], [address] T4 Free Directon 03-06-2024 T4 FREE DIRECT 0.92 ng/dL Normal 0.76-1.46 [facility] Comment on above: Order Comment: CBCD Performed By: #### L [id number], L100.0100, L506.0400, L506.1000, L500.4100, L500.4050 #### [facility] [address] [place], [address] Thyroid Stim Hormone (TSH)on 03-06-2024 TSH 3.080 uIU/mL Normal 0.358-3.740 [facility] Comment on above: Order Comment: CBCD Performed By: #### L [id number], L100.0100, L506.0400, L506.1000, L500.4100, L500.4050 #### [facility] [address] [place], [address] Vitamin D,25 Hydroxyon 03-06 Vitamin D 25-OH 17.2 ng/mL Normal [facility] Comment on above: Result Comment: Violeta min D 25(OH) Status Range Deficiency <20 ng/mL (50nmol/L) Insufficiency 20 - 30 ng/mL (50 - 75 nmol/L) Sufficiency 30 - 100 ng/mL (75 - 250 nmol/L) Toxicity >100 ng/mL (>250 nmol/L) Performed By: #### L [id number], L100.0100, L506.0400, L506.1000, L500.4100, L500.4050 #### [facility] [place], [address] Absolute lymphocyte countOrd ered By: Helen Santos on 08-06-2023 Lymphocytes Auto (Unsp spec) [#/Vol] 1.06 10*3/uL 0.83-4.51 [facility] Automated lymphocyte count a s percentage of total leukocytesOrdered By: Helen Santos on 08-06-2023 Lymphocytes/100 WBC Auto (Unsp spec) 19.9 % 19-41 [facility] Basophil percentageOrdered B y: Helen Santos on 08-06-2023 Basophils/100 WBC (Bld) 0.6 % 0-1 [facility] Chloride [Moles/Vol] 98 mmol/L 98-107 [facility] Eosinophils/100 WBC (Bld) 0.9 % 0-5 [facility] Glucose [Mass/Vol] 115 mg/dL 74-106 [facility] Comment on above: Fasting Glucose resu lt from 100 to 125 mg/dL suggests IMPAIRED HOMEOSTASIS per A.D.A. criteria. Hemoglobin (Bld) [Mass/Vol] 14.2 g/dL 13.0-16.5 [facility] Monocytes/100 WBC (Bld) 15.0 % 0-10 [facility] Neutrophils (Bld) [#/Vol] 3.4 10*3/uL 2.0-7.7 [facility] Neutrophils/100 WBC (Bld) 63.4 % 47-70 [facility] Potassium [Moles/Vol] 3.8 mmol/L 3.5-5.1 [facility] Sodium [Moles/Vol] 131 mmol/L 136-145 [facility] WBC (Bld) [#/Vol] 5.3 10*3/uL 4.4-11.0 [facility] Determination of erythrocyte mean corpuscular volume (MCV)Ordered By: Helen Santos on 08-06-2023 MCV (RBC) [Entitic vol] 94.0 fL 80-94 [facility] Erythrocyte distribution wid th ratioOrdered By: Helen Santos on 08-06-2023 Erythrocyte distribution width (RBC) [Ratio] 11.3 % 11.6-14.6 [facility] Erythrocyte distribution wid th standard deviationOrdered By: Helen Santos on 08-06-2023 Erythrocyte distribution width (RBC) [Entitic vol] 39.0 fL 35.1-43.9 [facility] Hematocrit Auto (Bld) [Volum e fraction]Ordered By: Helen Santos on 08-06-2023 Hematocrit (Bld) [Volume fraction] 39.1 % 40-54 [facility] Immature granulocytes/100 WB C Auto (Bld)Ordered By: Helen Santos on 08-06-2023 Immature granulocytes/100 WBC (Bld) 0.200 % 0.0-0.9 [facility] Comment on above: IG% - Immature Granu locytes (promyelocytes, myelocytes and metamyelocytes) > 1% indicates that a LEFT SHIFT is Present. Laboratory - Chemistry and C hemistry - challengeOrdered By: Helen Santos on 08-06-2023 CO2 [Moles/Vol] 25.0 mmol/L 21.0-32.0 [facility] Urea nitrogen/Creatinine [Mass ratio] 8.0 mg/mg 10-20 [facility] - Hematology and Cell countsOrdered By: Helen Santos on 08-06-2023 MCH (RBC) [Entitic mass] 34.1 pg 27.0-32.0 [facility] MCHC (RBC) [Mass/Vol] 36.3 g/dL 32-36 [facility] Nucleated RBC/100 WBC (Bld) [Ratio] 0 % 0-5 [facility] Platelet mean volume (Bld) [Entitic vol] 8.8 fL 6.2-12.0 [facility] Platelets (Bld) [#/Vol] 256 10*3/uL 150-450 [facility] No Panel InformationOrdered By: Helen Santos on 08-06-2023 Estimated Creatinine Clearance Calc 85.64 ml/min [facility] Estimated GFR (MDRD) Amer 89 mL/min >60 [facility] Comment on above: GFR Calc Estimated GFR (MDRD) Non-Af Amer 73 mL/min >60 [facility] Comment on above: Non- GFR Calc RBC Auto (Bld) [#/Vol]Ordere d By: Helen Santos on 08-06-2023 RBC (Bld) [#/Vol] 4.16 10*6/uL 4.6-6.2 [facility] Serum or plasma calcium sakina urement (mass/volume)Ordered By: Helen Santos on 08-06-2023 Calcium [Mass/Vol] 8.7 mg/dL 8.5-10.1 [facility] Serum or plasma creatinine m easurement (mass/volume)Ordered By: Helen Santos on 08-06-2023 Creatinine [Mass/Vol] 1.12 mg/dL 0.70-1.30 [facility] Comment on above: The validity of the calculated GFR & GFRAA in patients over 70 years has not been determined. Clinical correlation is essential. Serum or plasma urea nitroge n measurement (mass/volume)Ordered By: Helen Santos on 08-06-2023 Urea nitrogen [Mass/Vol] 9 mg/dL 7-18 [facility] Thin prep Papanicolaou smear with manual screeningOrdered By: Helen Santos on 08-06-2023 Thin prep Papanicolaou smear with manual screening 8 5-15 [facility] Absolute lymphocyte countOrd ered By: Sarah Ambrocio on 04-05-2023 Lymphocytes Auto (Unsp spec) [#/Vol] 2.07 10*3/uL 0.83-4.51 [facility] Basophil percentageOrdered B y: Sarah Ambrocio on 04-05-2023 Basophils/100 WBC (Bld) 1.2 % 0-1 [facility] Bilirubin [Mass/Vol] 0.40 mg/dL 0.20-1.00 [facility] Comment on above: For patients on eltr ombopag therapy, use of Dimension [place] TBIL is not recommended. Chloride [Moles/Vol] 106 mmol/L 98-107 [facility] Cholesterol [Mass/Vol] 177 mg/dL <200 [facility] Comment on above: <200 mg/dL Desirable 200-240 mg/dL Borderline >240 mg/dL High Risk Eosinophils/100 WBC (Bld) 2.2 % 0-5 [facility] Glucose [Mass/Vol] 94 mg/dL 74-106 [facility] Neutrophils (Bld) [#/Vol] 2.6 10*3/uL 2.0-7.7 [facility] Neutrophils/100 WBC (Bld) 44.1 % 47-70 [facility] Potassium [Moles/Vol] 3.8 mmol/L 3.5-5.1 [facility] Protein [Mass/Vol] 7.5 g/dL 6.4-8.2 [facility] Sodium [Moles/Vol] 138 mmol/L 136-145 [facility] Triglyceride [Mass/Vol] 45 mg/dL <199 [facility] Comment on above: The drugs N-Acetylcy steine and Metamizole may falsely depress this assay.Serum Triglycerides Reference Interval Normal <150 mg/dL Borderline high 150 - 199 mg/dL High 200 - 499 mg/dL Very High > or = 500 mg/dL WBC (Bld) [#/Vol] 5.9 10*3/uL 4.4-11.0 [facility] Blood erythrocytes count (nu mber/volume)Ordered By: Sarah Ambrocio on 04-05-2023 RBC (Bld) [#/Vol] 4.53 10*6/uL 4.6-6.2 [facility] Blood hemoglobin measurement (mass/volume)Ordered By: Sarah Ambrocio on 04-05-2023 Hemoglobin (Bld) [Mass/Vol] 15.0 g/dL 13.0-16.5 [facility] Blood lymphocytes/100 leukoc ytesOrdered By: Sarah Ambrocio on 04-05-2023 Lymphocytes/100 WBC (Bld) 35.3 % 19-41 [facility] Blood monocytes/100 leukocyt esOrdered By: Sarah Ambrocio on 04-05-2023 Monocytes/100 WBC (Bld) 16.9 % 0-10 [facility] Blood platelet mean volumeOr dered By: Sarah Ambrocio on 04-05-2023 Platelet mean volume (Bld) [Entitic vol] 9.1 fL 6.2-12.0 [facility] Determination of erythrocyte mean corpuscular volume (MCV)Ordered By: Sarah Ambrocio on 04-05-2023 MCV (RBC) [Entitic vol] 97.8 fL 80-94 [facility] Hematocrit Auto (Bld) [Volum e fraction]Ordered By: Sarah Ambrocio on 04-05-2023 Hematocrit (Bld) [Volume fraction] 44.3 % 40-54 [facility] - Chemistry and C hemistry - challengeOrdered By: [place] Cristóbal on 04-05-2023 ALP [Catalytic activity/Vol] 78 U/L 45-117 [facility] ALT [Catalytic activity/Vol] 18 U/L 16-61 [facility] CO2 [Moles/Vol] 26.0 mmol/L 21.0-32.0 [facility] Free T4 [Mass/Vol] 1.18 ng/dL 0.76-1.46 [facility] Globulin (S) [Mass/Vol] 3.5 g/dL 2.2-4.2 [facility] Urea nitrogen/Creatinine [Mass ratio] 13.5 mg/mg 10-20 [facility] - Hematology and Cell countsOrdered By: [place] Cristóbal on 04-05-2023 Erythrocyte distribution width (RBC) [Entitic vol] 41.7 fL 35.1-43.9 [facility] Erythrocyte distribution width (RBC) [Ratio] 11.6 % 11.6-14.6 [facility] Immature granulocytes/100 WBC (Bld) 0.300 % 0.0-0.9 [facility] Comment on above: IG% - Immature Granu locytes (promyelocytes, myelocytes and metamyelocytes) > 1% indicates that a LEFT SHIFT is Present. MCH (RBC) [Entitic mass] 33.1 pg 27.0-32.0 [facility] Nucleated RBC/100 WBC (Bld) [Ratio] 0 % 0-5 [facility] MCHC Auto (RBC) [Mass/Vol]Or dered By: Sarah Ambrocio on 04-05-2023 MCHC (RBC) [Mass/Vol] 33.9 g/dL 32-36 [facility] No Panel InformationOrdered By: Sarah Ambrocio on 04-05-2023 Atypical Lymphocytes RARE % [facility] Estimated GFR (MDRD) Amer 97 mL/min >60 [facility] Comment on above: GFR Calc Estimated GFR (MDRD) Non-Af Amer 80 mL/min >60 [facility] Comment on above: Non- GFR Calc Prostate Specific Antigen Screen 1.39 ng/mL 0.00-4.00 [facility] Comment on above: This test was perfor med using the TPSA assay method for the[employer] chemistry system. Values obtained with differentassay methods cannot be used interchangably.When changing PSA assays in the course of monitoring apatient, additional sequential testing should be carriedout to confirm baseline values. Thyroid Stimulating Hormone (TSH) 3.22 uIU/mL 0.358-3.74 [facility] Platelets bldOrdered By: Padmini Ambrocio on 04-05-2023 Platelets (Bld) [#/Vol] 330 10*3/uL 150-450 [facility] Serum or plasma albumin sakina urement (mass/volume)Ordered By: Sarah Ambrocio on 04-05-2023 Albumin [Mass/Vol] 4.0 g/dL 3.2-5.0 [facility] Serum or plasma albumin/glob ulin mass ratioOrdered By: Sarah Ambrocio on 04-05-2023 Albumin/Globulin [Mass ratio] 1.1 {ratio} 0.9-2.4 [facility] Serum or plasma calcium sakina urement (mass/volume)Ordered By: Sarah Ambrocio on 04-05-2023 Calcium [Mass/Vol] 8.3 mg/dL 8.5-10.1 [facility] Serum or plasma cholesterol in HDL measurement (mass/volume)Ordered By: Sarah Ambrocio on 04-05-2023 Cholesterol in HDL [Mass/Vol] 60 mg/dL >40 [facility] Comment on above: The drugs N-Acetylcy steine and Metamizole may falsely depress this assay. Reference Range HDL <40 mg/dL Low HDL Cholesterol HDL >or= 60 mg/dL High HDL Cholesterol Serum or plasma cholesterol in VLDL measurement (mass/volume)Ordered By: Sarah Ambrocio on 04-05-2023 Cholesterol in VLDL [Mass/Vol] 9 mg/dL 5-40 [facility] Serum or plasma creatinine m easurement (mass/volume)Ordered By: Sarah Ambrocio on 04-05-2023 Creatinine [Mass/Vol] 1.04 mg/dL 0.70-1.30 [facility] Comment on above: The validity of the calculated GFR & GFRAA in patients over 70 years has not been determined. Clinical correlation is essential. Serum or plasma low density lipoprotein (LDL) cholesterol measurement (mass/volume)Ordered By: Sarahdyan Ambrocio on 04-05-2023 Cholesterol in LDL [Mass/Vol] 108 mg/dL 0-130 [facility] Serum or plasma urea nitroge n measurement (mass/volume)Ordered By: [place] Cristóbal on 04-05-2023 Urea nitrogen [Mass/Vol] 14 mg/dL 7-18 [facility] Thin prep Papanicolaou smear with manual screeningOrdered By: Sarahdyan Ambrocio on 04-05-2023 Thin prep Papanicolaou smear with manual screening 22 U/L 15-37 [facility] Thin prep Papanicolaou smear with manual screening 6 5-15 [facility] Laboratory - Chemistry and C hemistry - challengeOrdered By: Dr. Lilly on 06-27-2022 Free T4 [Mass/Vol] 1.19 ng/dL 0.76-1.46 [facility] No Panel InformationOrdered By: Dr. Lilly on 06-27-2022 Thyroid Stimulating Hormone (TSH) 2.63 uIU/mL 0.358-3.74 [facility] Absolute lymphocyte countOrd ered By: Dr. Lilly on 03-23-2022 Lymphocytes Auto (Unsp spec) [#/Vol] 1.56 10*3/uL 0.83-4.51 [facility] Basophil percentageOrdered B y: Dr. Lilly on 03-23-2022 Basophils/100 WBC (Bld) 0.4 % 0-1 [facility] Bilirubin [Mass/Vol] 0.60 mg/dL 0.20-1.00 [facility] Comment on above: For patients on eltr ombopag therapy, use of Dimension [place] TBIL is not recommended. Chloride [Moles/Vol] 104 mmol/L 98-107 [facility] Cholesterol [Mass/Vol] 184 mg/dL <200 [facility] Comment on above: <200 mg/dL Desirable 200-240 mg/dL Borderline >240 mg/dL High Risk Eosinophils/100 WBC (Bld) 1.4 % 0-5 [facility] Glucose [Mass/Vol] 103 mg/dL 74-106 [facility] Comment on above: Fasting Glucose resu lt from 100 to 125 mg/dL suggests IMPAIRED HOMEOSTASIS per A.D.A. criteria. Neutrophils (Bld) [#/Vol] 3.2 10*3/uL 2.0-7.7 [facility] Neutrophils/100 WBC (Bld) 57.6 % 47-70 [facility] Potassium [Moles/Vol] 4.1 mmol/L 3.5-5.1 [facility] Protein [Mass/Vol] 7.9 g/dL 6.4-8.2 [facility] Sodium [Moles/Vol] 137 mmol/L 136-145 [facility] Triglyceride [Mass/Vol] 73 mg/dL <199 [facility] Comment on above: The drugs N-Acetylcy steine and Metamizole may falsely depress this assay.Serum Triglycerides Reference Interval Normal <150 mg/dL Borderline high 150 - 199 mg/dL High 200 - 499 mg/dL Very High > or = 500 mg/dL WBC (Bld) [#/Vol] 5.6 10*3/uL 4.4-11.0 [facility] Blood erythrocytes count (nu mber/volume)Ordered By: Dr. Lilly on 03-23-2022 RBC (Bld) [#/Vol] 4.56 10*6/uL 4.6-6.2 [facility] Blood hemoglobin measurement (mass/volume)Ordered By: Dr. Lilly on 03-23-2022 Hemoglobin (Bld) [Mass/Vol] 16.1 g/dL 13.0-16.5 [facility] Blood lymphocytes/100 leukoc ytesOrdered By: Dr. Lilly on 03-23-2022 Lymphocytes/100 WBC (Bld) 27.9 % 19-41 [facility] Blood monocytes/100 leukocyt esOrdered By: Dr. Lilly on 03-23-2022 Monocytes/100 WBC (Bld) 12.3 % 0-10 [facility] Blood platelet mean volumeOr dered By: Dr. Lilly on 03-23-2022 Platelet mean volume (Bld) [Entitic vol] 9.4 fL 6.2-12.0 [facility] Determination of erythrocyte mean corpuscular volume (MCV)Ordered By: Dr. Lilly on 03-23-2022 MCV (RBC) [Entitic vol] 94.5 fL 80-94 [facility] Hematocrit Auto (Bld) [Volum e fraction]Ordered By: Dr. Lilly on 03-23-2022 Hematocrit (Bld) [Volume fraction] 43.1 % 40-54 [facility] Laboratory - Chemistry and C hemistry - challengeOrdered By: Dr. Lilly on 03-23-2022 ALP [Catalytic activity/Vol] 77 U/L 45-117 [facility] ALT [Catalytic activity/Vol] 17 U/L 16-61 [facility] CO2 [Moles/Vol] 25.0 mmol/L 21.0-32.0 [facility] Globulin (S) [Mass/Vol] 3.8 g/dL 2.2-4.2 [facility] Urea nitrogen/Creatinine [Mass ratio] 13.2 mg/mg 10-20 [facility] Laboratory - Hematology and Cell countsOrdered By: Dr. Lilly on 03-23-2022 Erythrocyte distribution width (RBC) [Entitic vol] 40.0 fL 35.1-43.9 [facility] Erythrocyte distribution width (RBC) [Ratio] 11.6 % 11.6-14.6 [facility] Immature granulocytes/100 WBC (Bld) 0.400 % 0.0-0.9 [facility] Comment on above: IG% - Immature Granu locytes (promyelocytes, myelocytes and metamyelocytes) > 1% indicates that a LEFT SHIFT is Present. MCH (RBC) [Entitic mass] 35.3 pg 27.0-32.0 [facility] Nucleated RBC/100 WBC (Bld) [Ratio] 0 % 0-5 [facility] MCHC Auto (RBC) [Mass/Vol]Or dered By: Dr. Lilyl on 03-23-2022 MCHC (RBC) [Mass/Vol] 37.4 g/dL 32-36 [facility] No Panel InformationOrdered By: Dr. Lilly on 03-23-2022 Estimated GFR (MDRD) Amer 103 mL/min >60 [facility] Comment on above: GFR Calc Estimated GFR (MDRD) Non-Af Amer 85 mL/min >60 [facility] Comment on above: Non- GFR Calc Prostate Specific Antigen Screen 1.18 ng/mL 0.00-4.00 [facility] Comment on above: This test was perfor med using the TPSA assay method for [employer] chemistry system. Values obtained with differentassay methods cannot be used interchangably.When changing PSA assays in the course of monitoring apatient, additional sequential testing should be carriedout to confirm baseline values. Thyroid Stimulating Hormone (TSH) 4.90 uIU/mL 0.358-3.74 [facility] Platelets bldOrdered By: Dr. Lilly on 03-23-2022 Platelets (Bld) [#/Vol] 247 10*3/uL 150-450 [facility] Serum or plasma albumin sakina urement (mass/volume)Ordered By: Dr. Lilly on 03-23-2022 Albumin [Mass/Vol] 4.1 g/dL 3.2-5.0 [facility] Serum or plasma albumin/glob ulin mass ratioOrdered By: Dr. Lilly on 03-23-2022 Albumin/Globulin [Mass ratio] 1.1 {ratio} 0.9-2.4 [facility] Serum or plasma calcium sakina urement (mass/volume)Ordered By: Dr. Lilly on 03-23-2022 Calcium [Mass/Vol] 8.8 mg/dL 8.5-10.1 [facility] Serum or plasma cholesterol in HDL measurement (mass/volume)Ordered By: Dr. Lilly on 03-23-2022 Cholesterol in HDL [Mass/Vol] 66 mg/dL >40 [facility] Comment on above: The drugs N-Acetylcy steine and Metamizole may falsely depress this assay. Reference Range HDL <40 mg/dL Low HDL Cholesterol HDL >or= 60 mg/dL High HDL Cholesterol Serum or plasma cholesterol in VLDL measurement (mass/volume)Ordered By: Dr. Lilly on 03-23-2022 Cholesterol in VLDL [Mass/Vol] 15 mg/dL 5-40 [facility] Serum or plasma creatinine m easurement (mass/volume)Ordered By: Dr. Lilly on 03-23-2022 Creatinine [Mass/Vol] 0.98 mg/dL 0.70-1.30 [facility] Comment on above: The validity of the calculated GFR & GFRAA in patients over 70 years has not been determined. Clinical correlation is essential. Serum or plasma low density lipoprotein (LDL) cholesterol measurement (mass/volume)Ordered By: Dr. Lilly on 03-23-2022 Cholesterol in LDL [Mass/Vol] 103 mg/dL 0-130 [facility] Serum or plasma urea nitroge n measurement (mass/volume)Ordered By: Dr. Lilly on 03-23-2022 Urea nitrogen [Mass/Vol] 13 mg/dL 7-18 [facility] Thin prep Papanicolaou smear with manual screeningOrdered By: Dr. Lilly on 03-23-2022 Thin prep Papanicolaou smear with manual screening 12 U/L 15-37 [facility] Thin prep Papanicolaou smear with manual screening 8 5-15 [facility] Vital Signs Date Time Vital Sign Value Performing Clinician Fredricki di 12-17-2024 11:02-0400 Body temperature 98.1 [degF] Sarah Ambrocio [facility] Work Phone: [facility] 12-17-2024 11:02-0400 Diastolic blood pressure 83 mm[Hg] Sarah Ambrocio [facility] Work Phone: [facility] 12-17-2024 11:02-0400 Heart rate 68 /min Sarah Ambrocio [facility] Work Phone: [facility] 12-17-2024 11:02-0400 Respiratory rate 16 /min Sarah Ambrocio [facility] Work Phone: [facility] 12-17-2024 11:02-0400 SaO2% (BldA) [Mass fraction] 100 % Sarah Ambrocio [facility] Work Phone: [facility] 12-17-2024 11:02-0400 Systolic blood pressure 137 mm[Hg] Sarah Ambrocio [facility] Work Phone: [facility] 12-17-2024 08:31-0400 Body height 180.34 cm Sarah Cristóbal [facility] Work Phone: [facility] 12-17-2024 08:31-0400 Body mass index (BMI) [Ratio] 25.4 kg/m2 Sarah Ambrocio [facility] Work Phone: [facility] 12-17-2024 08:31-0400 Body weight 82.72 kg [place] Cristóbal [facility] Work Phone: [facility] 08-06-2023 22:35-0400 Body temperature 97.6 [degF] [facility] 08-06-2023 22:35-0400 Diastolic blood pressure 94 mm[Hg] [facility] 08-06-2023 22:35-0400 Heart rate 78 /min [facility] 08-06-2023 22:35-0400 Respiratory rate 18 /min [facility] 08-06-2023 22:35-0400 SaO2% (BldA) [Mass fraction] 100 % [facility] 08-06-2023 22:35-0400 Systolic blood pressure 146 mm[Hg] [facility] 08-06-2023 17:56-0400 Body height 182.88 cm [facility] 08-06-2023 17:56-0400 Body mass index (BMI) [Ratio] 25 kg/m2 [facility] 08-06-2023 17:56-0400 Body weight 83.6 kg [facility] Encounters Encounter Date Encounter Type Care Provider Facility Start: 12-17-2024 End: 12-17-2024 Emergency department patient visit Sarah Cristóbal [facility] Work Phone: -Emergency Department Work Phone: Start: 04-06-2024 ambulatory Sarah Ambrocio Facility:[facility] Start: 03-24-2024 Encounter for genera l adult medical examination with abnormal findings Sarahdyan Ambrocio [facility] Start: 03-06-2024 End: 03-06-2024 [facility] Start: 08-06-2023 End: 08-06-2023 Emergency department patient visit [facility]-Emergency Department Work Phone: Start: 04-05-2023 End: 04-05-2023 ambulatory [facility] Work Phone: Start: 04-05-2023 End: 04-05-2023 Patient encounter procedure [facility]-Laboratory Work Phone: Start: 03-22-2023 End: 03-22-2023 ambulatory [facility] Work Phone: Start: 03-22-2023 End: 03-22-2023 Patient encounter procedure [facility]-Radiology, [facility] Work Phone: Start: 06-27-2022 End: 06-27-2022 ambulatory [facility] Work Phone: Start: 06-27-2022 End: 06-27-2022 Patient encounter procedure [facility]-Laboratory Start: 03-23-2022 End: 03-23-2022 ambulatory [facility] Work Phone: Start: 03-23-2022 End: 03-23-2022 Patient encounter procedure [facility]-Laboratory Procedures Date Procedure Procedure Detail Performing Clinician Start: 12-17-2024 X-ray of chest, PA a nd lateral views Sarah Cristóbal [facility] Work Phone: Start: 12-17-2024 D-dimer assay, quantitative Sarahdyan Ambrocio [facility] Work Phone: Comment on above: NORMAL D-Dimer level (<0.50) indicates no DVT or PE. Start: 12-17-2024 Estimated creatinine clearance Sarahdyan Ambrocoi [facility] Work Phone: Start: 08-06-2023 CT of soft tissues o f neck with contrast Start: 03-22-2023 Plain x-ray of pelvi s and lower extremity Start: 03-22-2023 X-ray of lumbar spin e, two or three views Plan of Treatment Date Care Activity Detail Author Start: 12-17-2024 End: 12-17-2024 [facility] Start: 08-06-2023 [facility] Patient Education [facility] Work Phone: Patient referral [facility] Work Phone: Payers Date Payer Category Payer Self-pay [id number] 2024 Unknown [id number] Self-pay [id number] Unknown [id number] Unknown [id number] Unknown [id number] Social History Date Type Detail [facility] Work Phone: Start: 1970 Sex Assigned At Male [facility] Start: 08-06-2023 [facility] Start: 12-17-2024 [facility]finding[facility] Mental Status Date Assessment Result Facility 12-17-2024 Cognitive function Level Of Cons ciousness Awake;Alert;Appropriate;Follow s Commands [facility] Work Phone: Discharge summary 12-17-2024 Note Date & Type Note Facility 12-17-2024 Discharge summary [facility] Radiology Diagnostic study note 12-17-2024 Note Date & Type Note Facility 12-17-2024 Radiology Diagnostic study note [facility] Imaging Services [address] [place] [address] Chest PA and Lateral MR#: [id number] Acct: [id number] Name: WILMAR TURCIOS Rep #: [id number] : 1970 M 54 From: Ian Roe MD PCP: REGINALD Valadez Status: REG ER Study:Chest PA and Lateral Date of Exam: 12/17/24 Exam# [id number] Ordering Dr: Lauri Gray DO PROCEDURE: CHEST PA AND LATERAL 12/17/2024 REASON FOR EXAM: SHORTNESS OF BREATH TECHNIQUE: Three-view PA and lateral chest. COMPARISON: None. RAD/Chest PA and Lateral IMPRESSION: At least mild left acromioclavicular joint degenerative changes are seen. Mild thoracic spine degenerative changes are seen, along with early DISH. No acute osseous changes noted. Lungs appear clear. No pleural effusion or pneumothorax is noted. The cardiomediastinal silhouette is within the normal range for age. No evidence of acute cardiopulmonary disease. Reading Location: [place] [address] CC: LOG ROPER-C Sarah Ambrocio; Dr. Lauri Lazo DO ~ Encoding Machine Operator: Signed [facility] Discharge summary Note Date & Type Note Facility Discharge summary Note Date/Time December 17, 2024 10:46am [facility] Medical Records Department [address] [place] [address] Emergency Department Summary 12/17/24 MR#: [id number] Acct: [id number] Name: WILMAR TURCIOS Rep #:[id number] : 1970 54 From: Lauri green DO PCP: REGINALD Valadez Status:REG ER Location: ED HPI History of Present Illness Chief Complaint: Chest Other Narrative Narrative: Chief complaint and HPI: Pain with respiratory inspiration. 54-year-old male with past medical history of anxiety, depression, insomnia presents for evaluation of pain with respiratory inspiration. Onset of symptoms approximately 1 hour. Patient states at rest he has no pain however anytime he takes a deep breath then he develops a sharp stabbing pain in his chest. He states it develops about fdc through the breath. He denies any fever, chills, cough, shortness of breath, true chest pain, abdominal pain, nausea, vomiting, bilateral lower extremity pain or swelling. He denies any history of DVT/PE. Denies any history of recent travel. Non-smoker. Denies any injury. Review of systems: See HPI Medications: As listed on the chart Allergies: As listed on the chart PFSH: Per chart Vital signs: As listed on the chart. Reviewed. Physical exam: Gen: A&O x3, NAD Head: Normocephalic, atraumatic Eyes: No sclera icterus, conjunctiva clear ENT: Moist mucous membranes Neck: Trachea midline, No JVD CV: RRR, no murmurs, no peripheral edema Resp: Lungs CTA BL, no w/r/c GI: Abd soft, non-distended, non-tender, no r/r/g Musc: Full ROM, no deformity Skin: Warm, dry Neuro: Alert, oriented, grossly intact, sensation intact Psych: Cooperative, appropriate mood and affect [facility] (Updated 12/17/24 @ 10:[address] Lauri Lazo DO) Anxiety and depression Home Medications ?Medication ?Instructions ?Recorded ?Last Taken ?Type buspirone 15 mg tablet 15 mg PO BID 12/17/24 Unknow n History fluoxetine 20 mg capsule 20 mg PO DAILY 12/17/24 Unkn own History meloxicam 15 mg tablet 15 mg PO DAILY 12/17/24 Unkn own History tadalafil 20 mg tablet 20 mg PO PRN 12/17/24 Unknow n History zolpidem 10 mg tablet 10 mg PO QHS PRN PRN sleep 0 12/17/24 Unknown History Allergy/AdvReac Type Severity Reaction Status Date / Time No Known Allergies Allergy Verified 12/17/24 08:32 Social History Smoking Status: Never smoker EXAM Physical Exam Const Vital Signs: 12/17/24 08:31 12/17/24 08:48 12/17/24 10:31 Temperature 98.3 F Temperature Source Oral Pulse Rate 70 60 Respiratory Rate 18 15 Respiratory Effort Normal Non-Labored Blood Pressure 159/82 H 135/90 H Blood Pressure Mean 107 105 Pulse Ox 100 99 Oxygen Delivery Method Room Air Room Air MDM MDM MDM Narrative Medical decision making narrative: 54-year-old male with past medical history of anxiety, depression, insomnia presents for evaluation of pain with respiratory inspiration. Onset of symptomsapproximately 1 hour. Patient states at rest he has no pain however anytime he takes a deep breath then he develops a sharp stabbing pain in his chest. He states it develops about fdc through the breath. He denies shortness of breath or true chest pain. Differential diagnosis includes but is not limited to pleurisy, costochondritis, myofascial spasm, pneumothorax, PE, suspect less likely CHF. HPI is not consistent with ACS. IM Toradol ordered for pain. Respiratory workup ordered. CBC without leukocytosis or anemia. Platelets unremarkable. D-dimer unremarkable. BMP unremarkable. BNP unremarkable. At this point in time, no etiology to explain patient's pain with inspiration although I expect it is pleurisy. On reevaluation after receiving Toradol, patient states his pain has resolved. He is able to take a deep breath. Patient was updated of all his results and the plan for discharge home. Follow-up with primary care physician. He confirmed understanding of the plan. Returnprecautions explained. EKG: Interpreted by me/EM physician: EKG shows normal sinus rhythm with heart rate 71. No acute ischemic changes. Diagnostic: Interpreted by me/EM physician: Chest x-ray without pneumonia, effusion, cardiomegaly, pneumothorax. Radiology in agreement. Impression: 1. Pain with deep inspiration, suspect pleurisy 2. HTN, to be confirmed Lab Data Labs: Laboratory Results - last 24 hr 12/17/24 08:42 WBC 4.7 RBC 4.24 L Hgb 14.4 Hct 40.9 MCV 96.5 H MCH 34.0 H MCHC 35.2 RDW Std Deviation 42.6 RDW Coeff of Nicole 12.0 Plt Count 269 MPV 8.9 Immature Gran % (Auto) 0.400 Neut % (Auto) 55.0 Lymph % (Auto) 23.8 [place] % (Auto) 17.0 H Eos % (Auto) 3.2 Baso % (Auto) 0.6 Absolute Neuts (auto) 2.6 Absolute Lymphs (auto) 1.12 Nucleated RBC % 0 D-Dimer Quant (PE/DVT) 0.38 Sodium 134 Potassium 4.2 Chloride 99 Carbon Dioxide 21.6 Anion Gap 14 BUN 14 Creatinine 0.97 Estim Creat Clear Calc 93.80 Est GFR (MDRD) Non-Af 93 BUN/Creatinine Ratio 14.7 Glucose 104 H Calcium 8.9 NT pro BNP II < 36 Radiography Diagnostic Testing: Clinical Impression(s) from Imaging Studies Chest X-Ray 12/17/24 08:53 IMPRESSION: At least mild left acromioclavicular joint degenerative changes are seen. Mild thoracic spine degenerative changes are seen, along with early DISH. No acute osseous changes noted. Lungs appear clear. No pleural effusion or pneumothorax is noted. The cardiomediastinal silhouette is within the normal range for age. No evidence of acute cardiopulmonary disease. Reading Location: [place] [address] Discharge Plan Triage Chief Complaint: Chest Other ED Provider: Lauri Lazo Dx/Rx/DC Orders Clinical Impression: Pleurisy Instructions: ED Pleurisy Prescriptions: No Action fluoxetine 20 mg capsule 20 mg PO DAILY buspirone 15 mg tablet 15 mg PO BID meloxicam 15 mg tablet 15 mg PO DAILY tadalafil 20 mg tablet 20 mg PO PRN zolpidem 10 mg tablet 10 mg PO QHS PRN PRN (Reason: sleep) Primary Care Provider: aSrah Ambrocio Referrals: Sarah Ambrocio NP-C [Primary Care Provider] - 3-5 Days Activity Restrictions/Additional Instructions: He received Toradol here in the emergency department, no ibuprofen for 8 hours. Return back to the ED if symptoms change or worsen. Follow-up with your primary care physician. Your blood pressure has been elevated here in the emergency department. Follow-up with your primary care physician for possible hypertension. Print Language: Czech Disposition Disposition: Home, Self Care What to do if you have Problems For any increased pain, shortness of breath, bleeding, nausea or vomiting, chestpain, or any unexpected problems, contact your Primary Care Provider. Call [facility] ([phone]) or report to the closest Emergency Room. Call 911 if necessary. 12/17/24 1046 <Electronically signed by Lauri Lazo DO> Cosigner Signature (if applicable): CC: REGINALD Ambrocio ~ Signed [facility] Work Phone: Evaluation note Note Date & Type Note Facility Evaluation note No assessment information availa ble [facility] Work Phone: Hospital Discharge instructions Note Date & Type Note Facility Hospital Discharge instructions Additional Instructions He received Toradol here in the emergency department, no ibuprofen for 8 hours. Return back to the ED if symptoms change or worsen. Follow-up with your primary care physician. Your blood pressure has been elevated here in the emergency department. Follow-up with your primary care physician for possible hypertension. [facility] Work Phone: Reason for referral (narrative) Note Date & Type Note Facility Reason for referral (narrative) No reason for referral information available [facility] Work Phone: Chief Complaint and Reason for Visit Chief Complaint throat closure Chief Complaint Admit Date chest other December 17, 2024 8:30 am Advance Directives No Advanced Directives Records Found Advance Directive Response Recorded Date/ Time Do you have a Healthcare Power of Advertising Assistant? No December 17, 2024 8:49am Summary Purpose Family History No Family History Records Found Additional Source Comments Goals (unrecognized [...] Dr. Michael Lilly MD Family Provider Active REGINALD Valadez Primary Care Provider Active Team Status: Inactive Member Role Status Dates REGINALD Valadez Primary Care Provide r, Attending Provider, Referring Provider Active Team Status: Inactive Member Role Status Dates REGINALD Valadez Primary Care Provider Active Dr. Helen Santos MD Emergency Provider Active Team Status: Active Member Role/Relationship Status Dates REGINALD Valdaez Primary Care Provider Active Team Status: Inactive Member Role/Relationship Status Dates REGINALD Valadez Primary Care Provider Active Start: December 17, 2024 End: December 17, 2024 Dr. Lauri Lazo DO Emergency Provider Activ e Start: December 17, 2024 End: December 17, 2024 (unrecognized sect ion and content) No Status Records Found INFORMATION SOURCE (unrecogn ized section and content) DATE CREATED AUTHOR 12/27/2024 [facility] FOR RECORDS PERTAINING TO PATIENTS WHO [...] BE BASED ON THE PRIMARY CLINICAL RECORDS. [facility] [employer] provides no warranty or guarantee of the accuracy or completeness of information in this document.
[2025-02-05 07:11] LABS: Hematocrit 42.9 % (40-54); Hemoglobin 14.8 g/dL (13.0-16.5); Immature Granulocytes Count 0.020 X10^3/uL (0.0-0.0); Mean Corp Hgb Conc 34.5 g/dL (32-36); Mean Corpuscular Volume 97.9 fL (80-94); Mean Platelet Vol. 9.1 fl (6.2-12.0); NRBC Flagged by Analyzer 0 % (0-5); Platelet Count 282 K/mm3 (150-450); RBC Distribution Width CV 11.9 % (11.6-14.6); RBC Distribution Width SD 43.6 fl (35.1-43.9); Red Blood Count 4.38 M/mm3 (4.6-6.2); White Blood Count 4.9 K/mm3 (4.4-11.0)
[2025-02-05 07:43] LABS: AST(SGOT) 25 U/L (<=37); Alanine Aminotransfer ALT/SGPT 9 U/L (<=46); Albumin, Serum 4.4 g/dL (3.5-5.0); Alkaline Phosphatase 84 U/L (40-129); Anion Gap 10 (5-15); BUN 18 mg/dL (4-19); BUN/Creat Ratio 18.1 RATIO (10-20); Calcium,Total 9.0 mg/dL (7.6-11.0); Carbon Dioxide 24.4 mmol/L (21.0-32.0); Chloride 102 mmol/L (98-108); Cholesterol 183 mg/dL (<=200); Globulin 2.6 g/dL (2.2-4.2); Glucose 93 mg/dL (70-99); Low Density Lipoprotein Calc. 84 mg/dL; PSA,Total - Annual Screen 0.98 ng/mL (0.02-4.00); Potassium 4.5 mmol/L (3.3-5.1); Triglycerides 42 mg/dL; Very Low Density Lipoprotein 8 mg/dL (5-40); Vitamin D,25 Hydroxy 32.4 ng/mL (30-100); cholesterol:hdl ratio screen 2.02
== END | disposition home or self-care (01) ==
LOC: LAB 05:54
PROVIDERS: PCP Nurse Practitioner Family; Referring Provider Nurse Practitioner Family; Visit Provider Nurse Practitioner Family
DX: Z00.01 Encounter for general adult medical examination with abnormal findings (principal); Z12.5 Encounter for screening for malignant neoplasm of prostate; R79.89 Other specified abnormal findings of blood chemistry; E55.9 Vitamin D deficiency, unspecified
CPT/HCPCS: 36415; 80053; 80061; 82306; 84153; 84439; 84443; 85025; G0103